=== PATIENT | female | born 1995 | race Caucasian/White ===

== ENCOUNTER 2021-02-24 07:33 | Inpatient (IN) ==
[2021-02-24] MEDS ORDERED: OXYTOCIN 30 UNITS/500 ML BAG IV PRN ×2 (07:48→07:50)
--- NOTE | 2021-02-24 08:03 | History & Physical Report ---
Date of Service February 24, 2021 Assessment & Plan (1) 40 weeks gestation of : (2) Encounter for induction of labor: (3) Gestational diabetes: Plan: Plan to admit. Pitocin for induction, arom as indicated . epidural on demand. fetus categroy one. anticipate . Admission and Anticipated Discharge Date Admission Date: February 24, 2021 History of Present Illness Chief Complaint: induction Primary Care Provider: Damian Lawrence Patient is a 25yowf with iup at 40 4/7 weeks who presents to labor and delivery for postdates induction. She notes +fm. no lof/vb. complicated by gdm diagnosed at 16 weeks, diet controlled. gbs neg. on 01/27 at 28 weeks ac was 45% and efw 38%. labs--B+/ab-/ri/rprnr/hepb-/hiv-/gc/ct-/ low risk invitae/cf/sma neg/ failed 16 week gtt Allergies Allergy/AdvReac Type Severity Reaction Status Date / Time No Known Allergies Allergy Verified 02/24/21 08:03 Home Medications Medication Instructions Recorded Confirmed Type lactase 3,000 unit tablet (Lactaid) 3,000 unit PO AC PRN 10/31/18 02/24/21 History prenat.vits,hanna,nlw-[id number] 1 tab PO DAILY 07/16/20 02/24/21 History acetone (urine) test (Ketone Urine #50 ea 10/24/20 02/23/21 Rx Test) blood sugar diagnostic (OneTouch #150 ea 10/24/20 02/23/21 Rx Verio test strips) blood-glucose meter (OneTouch #1 ea 10/24/20 02/23/21 Rx Verio Flex meter) lancets 33 gauge (OneTouch Delica #150 ea 10/24/20 02/23/21 Rx Plus Lancet) Patient History Medical History Anxiety Diarrhea Enlarged thyroid gland Lower abdominal pain Panic disorder Surgical History History of cholecystectomy History of open reduction and internal fixation (ORIF) procedure right foot fx--no hardware History of wisdom tooth extraction Family History Grandfather (Maternal) Family history of diabetes mellitus Diabetes Aunt Family hx of colon cancer Other No family history of adverse response to anesthesia Social History Smoking Status: Never smoker Second Hand Exposure: No; Hx Alcohol Use: Yes Alcohol type: beer, wine and hard liquor Hx Substance Use: No Preferred Language: French Communication Ability: Effective Academic Affairs Vice President Required: No Beliefs That Will Affect Care: None marital status: marital status details: Kyle (23) [phone] Current Living Situation: Spouse Current Living Situation Comment: lives with spouse and her parents, dogs, cats, mom changes litter current occupational status: employed current occupation: RN @ [employer] Other Information That Helps Us Care for You: No Feels Safe at Home: Yes Safety Concerns: Feels Safe At This Time Assistive Devices: Glasses OB History 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 Review of Systems All systems reviewed & are unremarkable except as noted in HPI & below Physical Exam Physical Exam: cx--4/75/-2/soft/mid toco--rare efm--140s with mod variability, accels to 160s, no decels Constitutional: WD/WN, vitals as above Gastrointestinal (Abdomen): soft, gravid, nt Psychiatric: A+Ox3, euthymic affect Results & Data ([facility]) Vital Signs (Past 12 Hours) Vital Signs Temp Pulse Resp BP 02/24/21 07:39 112 H 139/94 02/24/21 07:38 37.2 C 20 Code Status & VTE Plan VTE Prophylaxis Plan VTE Prophylaxis will be ordered: No Coding Level of Care Code None Diagnoses 40 weeks gestation of Z3A.40 Encounter for induction of labor Z34.90 Gestational diabetes O24.419
[2021-02-24 08:32] LABS: Hematocrit (blood only) 33.5 % (37-47); Hemoglobin 10.8 g/dL (12.0-16.0); Mean Corpuscular Hemoglobin 28.4 pg (25-34); Mean Corpuscular Hgb Conc 32.2 g/dL (32-36); Mean Corpuscular Volume 88.2 fL (80-100); Mean Platelet Volume 12.4 fL (7.4-10.4); Platelet Count 144 K/uL (130-400); RDW Standard Deviation 44.7 fL (36.4-46.3)
[2021-02-24] MEDS: LACTATED RINGER'S 1,000 ML IV PRN ×3 (09:02→19:37)
[2021-02-24] MEDS ORDERED: Nursing to Pharmacy Communication SCH (10:45)
--- NOTE | 2021-02-24 11:14 | Labor Progress Brief Note ---
Date of Service February 24, 2021 Subjective notes some cramping Assessment & Plan (1) 40 weeks gestation of : (2) Encounter for induction of labor: Plan: arom. fetus category one. epidural on demand. anticipate . Admission and Anticipated Discharge Date Admission Date: February 24, 2021 Physical Exam Physical Exam: cx--/-2 arom--copious clear toco--q2-3min, pit at 8 efm--140s with mod variability, accels to 160s no decels Results & Data ([facility]) Vital Signs (Past 12 Hours) Vital Signs Temp Pulse Resp BP 02/24/21 10:58 37.2 C 85 20 122/74 02/24/21 10:10 79 116/71 02/24/21 09:06 84 123/73 02/24/21 08:01 100 H 125/81 02/24/21 07:39 112 H 139/94 02/24/21 07:38 37.2 C 20 Coding Level of Care Code None Diagnoses 40 weeks gestation of Z3A.40 Encounter for induction of labor Z34.90
[2021-02-24] MEDS ORDERED: fentaNYL citrate 100 MCG/2 ML VIAL ONE (11:40)
[2021-02-24] MEDS ORDERED: ePHEDrine sulfate 50 MG/ML AMP ONE (11:40)
[2021-02-24] MEDS ORDERED: BUPIVACAINE 0.25% 30 ML VIAL ONE (11:40)
[2021-02-24] MEDS ORDERED: SODIUM CHLORIDE 0.9% INJ 10 ML VIAL ONE (11:40)
[2021-02-24] MEDS ORDERED: fentaNYL 2MCG/ML ROPIVACAINE 1.25MG/ML 100 ML BAG EPI ONE (11:41)
[2021-02-24] MEDS ORDERED: diphenhydrAMINE 50 MG/ML VIAL IV PRN (11:43)
[2021-02-24] MEDS ORDERED: ONDANSETRON INJ 2 MG/ML 2 ML VIAL IV PRN (11:43)
[2021-02-24] MEDS ORDERED: NALBUPHINE HCL INJ 10 MG/ML AMP IV PRN (11:43)
[2021-02-24] MEDS ORDERED: NALOXONE HCL 1 MG in SODIUM CHLORIDE 0.9% 1000ML 1,000 ML IV PRN (11:43)
[2021-02-24] MEDS ORDERED: NALOXONE HCL 0.4 MG/1 ML VIAL/CARP IV PRN (11:43)
[2021-02-24] MEDS ORDERED: fentaNYL 2MCG/ML ROPIVACAINE 1.25MG/ML 100 ML BAG EPI PRN (11:43)
[2021-02-24] MEDS ORDERED: ePHEDrine sulfate 50 MG/ML AMP IV PRN (11:43)
--- NOTE | 2021-02-24 11:50 | Anesthesiology Consultation ---
Date of Service February 24, 2021 Assessment & Plan Chart Review Chart Review: Patient NOT seen in Pre Admission Testing and Acceptable Risk for Labor Epidural Consults Requested none ASA ASA2 Proposed Anesthesia Anesthesia Type: Labor Epidural and CSE Risk / Benefits Reviewed With: PT / POA / Parent / Guardian, Accepts Plan and Informed Consent Obtained History Height/Weight Height: 5 ft 3 in Weight: 96.162 kg Allergies Allergy/AdvReac Type Severity Reaction Status Date / Time No Known Allergies Allergy Verified 02/24/21 08:03 Medications Home Medications Medication Instructions Recorded Confirmed Last Taken lactase 3,000 unit tablet (Lactaid) 3,000 unit PO AC PRN 10/31/18 02/24/21 02/23/21 07:00 prenat.vits,hanna,[id number]-[id number] 1 tab PO DAILY 07/16/20 02/24/21 02/24/21 06:15 acetone (urine) test (Ketone Urine #50 ea 10/24/20 02/23/21 Unknown Test) blood sugar diagnostic (OneTouch #150 ea 10/24/20 02/23/21 Unknown Verio test strips) blood-glucose meter (OneTouch #1 ea 10/24/20 02/23/21 Unknown Verio Flex meter) lancets 33 gauge (OneTouch Delica #150 ea 10/24/20 02/23/21 Unknown Plus Lancet) Active Medications Generic Name Dose Route Start Last Admin Trade Name Freq PRN Reason Stop Dose Admin Oxytocin 30 units in 500 mls @ 8 mls/hr 02/24/21 07:50 02/24/21 10:58 Pitocin IV 02/26/21 07:49 0.48 units/hr .Q24H PRN 8 mls/hr Labor Induction/Augmentation Titration Protocol 0.48 UNITS/HR Lactated Ringer's 1,000 mls @ 125 mls/hr 02/24/21 07:48 02/24/21 11:36 Lr IV 02/26/21 07:47 999 mls/hr .Q8H PRN Infusion L&D Protocol Protocol NPO Date Last Intake of Fluids: 02/24/21 Time Last Intake of Fluids: 11:00 Date Last Intake of Solids: 02/24/21 Time Last Intake of Solids: 06:00 Past Medical History Medical History Anxiety Diarrhea Enlarged thyroid gland Lower abdominal pain Panic disorder Exercise / Class Metabolic Activity II 4-5 Yardwork/Stairs/Walk up hill Past Family History Family History Grandfather (Maternal) Family history of diabetes mellitus Diabetes Aunt Family hx of colon cancer Other No family history of adverse response to anesthesia Past Surgical History Surgical History History of cholecystectomy History of open reduction and internal fixation (ORIF) procedure right foot fx--no hardware History of wisdom tooth extraction Past Anesthesia History No Hx of Anesthesia Complications and No Family Hx of Anesthesia Complications History of PONV No Hx of PONV and No Hx of Motion Sickness Social History Smoking Status: Never smoker Hx Alcohol Use: Yes Alcohol type: beer, wine and hard liquor alcohol intake frequency: a few times a month Hx Substance Use: No substance use type: does not use Review of Systems no chest pain or sob Physical Exam Vital Signs Last Vital Signs Temp 37.2 C 02/24/21 10:58 Pulse 76 02/24/21 11:43 Resp 20 02/24/21 10:58 BP 122/74 02/24/21 10:58 Pulse Ox 98 02/24/21 11:43 ENMT Mouth: no TMJ abnormality Thyromental Distance: > or= 3.5 Finger Breadths Mallampati Class: II Neck normal visual inspection Respiratory normal respiratory effort Auscultation: lungs clear to auscultation bilaterally Cardiovascular Rate/Rhythm: regular rate and regular rhythm Musculoskeletal Spine: normal cervical ROM Neurologic moves all extremities Psychiatric Orientation: alert and oriented x 3 Testing Laboratory Results 02/24/21 08:23 02/24/21 02/24/21 02/24/21 11:33 09:31 08:19 POC Glucose 74 80 91
--- NOTE | 2021-02-24 15:55 | Labor Progress Brief Note ---
Date of Service February 24, 2021 Subjective comfortable after epidural Assessment & Plan (1) 40 weeks gestation of : (2) Encounter for induction of labor: Plan: continue current management. fetus category one. anticipate . Admission and Anticipated Discharge Date Admission Date: February 24, 2021 Physical Exam Physical Exam: cx--8/100/-1 toco--q2-3min, pit at 10 efm--140s with mod variability, accels to 160s no decels Constitutional: WD/WN, vitals as above Psychiatric: A+Ox3, euthymic affect Results & Data ([facility]) Vital Signs (Past 12 Hours) Vital Signs Temp Pulse Resp BP Pulse Ox 02/24/21 15:48 64 99 02/24/21 15:45 62 100/50 L 02/24/21 15:43 65 98 02/24/21 15:38 71 99 02/24/21 15:33 66 99 02/24/21 15:30 20 02/24/21 15:29 71 116/79 02/24/21 15:28 71 99 02/24/21 15:23 67 99 02/24/21 15:18 68 99 02/24/21 15:13 79 119/76 99 02/24/21 15:08 79 99 02/24/21 15:03 77 99 02/24/21 15:00 37.4 C 20 02/24/21 14:59 75 121/77 02/24/21 14:58 73 99 02/24/21 14:53 78 99 02/24/21 14:48 77 99 02/24/21 14:44 71 124/74 02/24/21 14:43 76 100 02/24/21 14:38 73 99 02/24/21 14:33 73 100 02/24/21 14:30 18 02/24/21 14:29 80 112/66 02/24/21 14:28 78 100 02/24/21 14:23 76 100 02/24/21 14:18 67 99 02/24/21 14:13 65 106/58 L 99 02/24/21 14:08 76 99 02/24/21 14:03 69 100 02/24/21 14:00 20 02/24/21 13:59 64 94/53 L 02/24/21 13:58 61 99 02/24/21 13:53 66 97 08/31/21 13:48 62 98 02/24/21 13:45 60 97/56 L 02/24/21 13:43 61 98 02/24/21 13:38 78 99 02/24/21 13:33 70 98 02/24/21 13:30 20 02/24/21 13:28 66 92/53 L 99 02/24/21 13:23 67 98 02/24/21 13:18 65 97 02/24/21 13:13 64 92/50 L 99 02/24/21 13:08 63 98 02/24/21 13:05 37.1 C 18 02/24/21 13:03 79 99 02/24/21 12:58 73 110/71 98 02/24/21 12:53 74 98 02/24/21 12:48 71 99 02/24/21 12:45 70 114/69 02/24/21 12:43 74 99 02/24/21 12:38 71 98 02/24/21 12:33 83 99 02/24/21 12:28 82 129/70 99 02/24/21 12:24 88 115/93 02/24/21 12:23 76 99 02/24/21 12:18 82 99 02/24/21 12:17 81 118/74 02/24/21 12:15 80 20 116/73 02/24/21 12:13 83 116/70 99 02/24/21 12:11 81 126/79 02/24/21 12:09 89 119/73 02/24/21 12:08 83 100 02/24/21 12:07 96 H 123/73 02/24/21 12:05 85 119/69 02/24/21 12:03 89 125/75 100 02/24/21 12:02 20 02/24/21 12:01 77 124/67 02/24/21 11:58 78 100 02/24/21 11:53 91 H 100 02/24/21 11:48 76 99 02/24/21 11:43 76 98 02/24/21 10:58 37.2 C 85 20 122/74 02/24/21 10:10 79 116/71 02/24/21 09:06 84 123/73 02/24/21 08:01 100 H 125/81 02/24/21 07:39 112 H 139/94 02/24/21 07:38 37.2 C 20 Coding Level of Care Code None Diagnoses 40 weeks gestation of Z3A.40 Encounter for induction of labor Z34.90
--- NOTE | 2021-02-24 20:58 | Labor Progress Brief Note ---
Date of Service February 24, 2021 Subjective feeling pressure Assessment & Plan (1) Encounter for induction of labor: (2) Gestational diabetes: Plan: begin second stage. fetus category one. Admission and Anticipated Discharge Date Admission Date: February 24, 2021 Physical Exam Physical Exam: cx--c/c/0 toco--q2-3, pit at 10 efm--130s with mod variability, small accels, occasional variable Results & Data ([facility]) Vital Signs (Past 12 Hours) Vital Signs Temp Pulse Resp BP Pulse Ox 02/24/21 20:55 119 H 91 02/24/21 20:53 80 100 02/24/21 20:50 69 106/60 02/24/21 20:48 72 99 02/24/21 20:43 70 100 02/24/21 20:38 72 99 02/24/21 20:35 63 100/58 L 02/24/21 20:33 69 99 02/24/21 20:28 65 100 02/24/21 20:23 75 100 02/24/21 20:18 72 99 02/24/21 20:14 75 127/82 02/24/21 20:13 67 100 02/24/21 20:08 86 99 02/24/21 20:03 71 99 02/24/21 20:00 37.3 C 80 18 128/84 100 02/24/21 19:59 69 128/84 02/24/21 19:58 75 100 02/24/21 19:53 80 100 02/24/21 19:48 78 99 02/24/21 19:44 78 126/81 02/24/21 19:43 82 99 02/24/21 19:38 73 99 02/24/21 19:33 68 99 02/24/21 19:30 20 02/24/21 19:28 71 129/82 100 02/24/21 19:23 67 99 02/24/21 19:18 71 98 02/24/21 19:15 68 130/74 02/24/21 19:13 73 99 02/24/21 19:08 64 99 02/24/21 19:03 77 100 02/24/21 19:00 37.3 C 20 02/24/21 18:58 78 131/87 100 02/24/21 18:53 74 100 02/24/21 18:48 66 98 02/24/21 18:44 68 123/73 02/24/21 18:43 70 99 02/24/21 18:38 65 99 02/24/21 18:33 93 H 100 02/24/21 18:28 69 120/89 98 02/24/21 18:23 73 98 02/24/21 18:18 73 98 02/24/21 18:14 67 122/67 02/24/21 18:13 66 98 02/24/21 18:08 65 98 02/24/21 18:03 68 98 02/24/21 18:00 20 02/24/21 17:59 71 119/66 02/24/21 17:58 68 99 02/24/21 17:53 68 98 02/24/21 17:48 72 98 02/24/21 17:45 66 120/62 02/24/21 17:43 77 97 02/24/21 17:38 85 97 02/24/21 17:33 91 H 99 02/24/21 17:30 20 02/24/21 17:29 75 136/58 L 02/24/21 17:28 64 99 02/24/21 17:23 75 99 02/24/21 17:18 77 99 02/24/21 17:15 71 99/49 L 02/24/21 17:13 77 99 02/24/21 17:08 63 97 02/24/21 17:03 63 99 02/24/21 17:00 37.2 C 20 02/24/21 16:59 60 98/55 L 02/24/21 16:58 59 L 97 02/24/21 16:53 59 L 98 02/24/21 16:48 58 L 97 02/24/21 16:44 63 92/54 L 02/24/21 16:43 65 98 02/24/21 16:38 75 99 02/24/21 16:33 66 99 02/24/21 16:30 20 02/24/21 16:29 61 110/57 L 02/24/21 16:28 62 99 02/24/21 16:23 62 99 02/24/21 16:18 62 99 02/24/21 16:14 65 100/57 L 02/24/21 16:13 67 99 02/24/21 16:08 72 99 02/24/21 16:03 73 100 08/31/21 16:00 20 02/24/21 15:58 63 100/53 L 99 02/24/21 15:53 67 100 02/24/21 15:48 64 99 02/24/21 15:45 62 100/50 L 02/24/21 15:43 65 98 02/24/21 15:38 71 99 02/24/21 15:33 66 99 02/24/21 15:30 20 02/24/21 15:29 71 116/79 02/24/21 15:28 71 99 02/24/21 15:23 67 99 02/24/21 15:18 68 99 02/24/21 15:13 79 119/76 99 02/24/21 15:08 79 99 02/24/21 15:03 77 99 02/24/21 15:00 37.4 C 20 02/24/21 14:59 75 121/77 02/24/21 14:58 73 99 02/24/21 14:53 78 99 02/24/21 14:48 77 99 02/24/21 14:44 71 124/74 02/24/21 14:43 76 100 02/24/21 14:38 73 99 02/24/21 14:33 73 100 02/24/21 14:30 18 02/24/21 14:29 80 112/66 02/24/21 14:28 78 100 02/24/21 14:23 76 100 02/24/21 14:18 67 99 02/24/21 14:13 65 106/58 L 99 02/24/21 14:08 76 99 02/24/21 14:03 69 100 02/24/21 14:00 20 02/24/21 13:59 64 94/53 L 02/24/21 13:58 61 99 02/24/21 13:53 66 97 02/24/21 13:48 62 98 02/24/21 13:45 60 97/56 L 02/24/21 13:43 61 98 02/24/21 13:38 78 99 02/24/21 13:33 70 98 02/24/21 13:30 20 02/24/21 13:28 66 92/53 L 99 02/24/21 13:23 67 98 02/24/21 13:18 65 97 02/24/21 13:13 64 92/50 L 99 02/24/21 13:08 63 98 02/24/21 13:05 37.1 C 18 02/24/21 13:03 79 99 02/24/21 12:58 73 110/71 98 02/24/21 12:53 74 98 02/24/21 12:48 71 99 02/24/21 12:45 70 114/69 02/24/21 12:43 74 99 02/24/21 12:38 71 98 02/24/21 12:33 83 99 02/24/21 12:28 82 129/70 99 02/24/21 12:24 88 115/93 02/24/21 12:23 76 99 02/24/21 12:18 82 99 02/24/21 12:17 81 118/74 02/24/21 12:15 80 20 116/73 02/24/21 12:13 83 116/70 99 02/24/21 12:11 81 126/79 02/24/21 12:09 89 119/73 02/24/21 12:08 83 100 02/24/21 12:07 96 H 123/73 02/24/21 12:05 85 119/69 02/24/21 12:03 89 125/75 100 02/24/21 12:02 20 02/24/21 12:01 77 124/67 02/24/21 11:58 78 100 02/24/21 11:53 91 H 100 02/24/21 11:48 76 99 02/24/21 11:43 76 98 02/24/21 10:58 37.2 C 85 20 122/74 02/24/21 10:10 79 116/71 02/24/21 09:06 84 123/73 Coding Level of Care Code None Diagnoses Encounter for induction of labor Z34.90 Gestational diabetes O24.419
[2021-02-24] MEDS ORDERED: ACETAMINOPHEN 325 MG TAB PO PRN (23:13)
[2021-02-24] MEDS ORDERED: oxyCODONE/ACETAMINOPHEN 5mg/325mg TAB PO PRN (23:13)
--- NOTE | 2021-02-24 23:20 | Delivery Summary ---
Vaginal Delivery Summary Date of Service February 24, 2021 Pre-operative Diagnosis: at 40 4/7 GDM encounter for induction Post-operative Diagnosis: same Procedure: pitocin induction arom epidural manual extraction of the placenta second degree laceration repair EBL: 450cc Anesthesia: epidural Procedure: The patient presented to labor and delivery for postdates induction. Her cervix was favorable. Started with pitocin induction and then arom for clear fluid. she got an epidural and then progressed to c/c/+1. She labored down and then pushed for a little less than one hour to deliver a viable male infant in maude position. The shoulder was delivered by placing the patient flat and Gonzalez maneuver but there was no true shoulder dystocia. the rest of the was then delivered without difficulty. The baby was vigorous. The nose and mouth were bulb suctioned and the infant was placed in the maternal abdomen for drying and attention. Cord was clamped and cut at about one minute of life. Cord blood and segment obtained. Placenta by manual extraction after the cord was avulsed. Several sweeps were made of the uterus to deliver the placenta and the uterine cavity felt clean at the last sweep. Cervix/sulci/rectum were intact. A second degree perineal laceration was repaired in the normal standard fashion. Hemostasis obtained with dilute pitocin and fundal massage. Apgars were 8/9. Mother and baby doing well at the end of the delivery. Patient will receive a dose of Ancef secondary to manual extraction. Vaginal Delivery Summary and 2nd Degree LAC [facility] Vaginal Delivery Charge Delivery Type Details: and 2nd Degree LAC
[2021-02-24] MEDS ORDERED: ceFAZolin 1000MG 1,000 MG/7.5 ML SYR IV ONE (23:30)
--- NOTE | 2021-02-24 23:34 | Anesthesia Procedure Note ---
Date of Service February 24, 2021 Anesthesia Post Epidural Note Vital Signs Vital Signs: Temp Pulse Resp BP Pulse Ox 37.2 C 110 H 16 106/60 97 02/24/21 21:09 02/24/21 23:28 02/24/21 21:09 02/24/21 23:20 02/24/21 23:28 Pain Intensity Bilateral Abdomen: Pain Intensity: 0 Notes Mental Status: alert / awake / arousable and participated in evaluation Nausea / Vomiting: adequately controlled Pain: adequately controlled Airway Patency, RR, SpO2: stable & adequate BP & HR: stable & adequate Hydration State: stable & adequate Neuraxial Anesthesia: was administered and sensory block is resolving Anesthetic Complications: no major complications apparent and Pt Satisfied with anesthetic care Epidural: Removed without complications and With tip intact
[2021-02-25] MEDS ORDERED: BENZOIN EXT PRN (01:05)
[2021-02-25] MEDS ORDERED: SUPERCREAM 0.870% 15 GM JAR EXT PRN (01:07)
[2021-02-25] MEDS ORDERED: BENZOCAINE 20% AER SPR 82.5 GM CAN EXT PRN (01:33)
[2021-02-25] MEDS: IBUPROFEN 600 MG TAB PO PRN ×5 (02:18→21:02)
--- NOTE | 2021-02-25 06:13 | Obstetrical Progress Note ---
Date of Service <Darlin Schulz MD - Last Filed: 02/25/21 07:05> February 25, 2021 Assessment & Plan <Darlin Schulz MD - Last Filed: 02/25/21 07:05> (1) Vaginal delivery: 25 yo , complicated by GDM, now PPD1 from [facility] at 40wk5d -Continue routine care. New mother, education to be provided. Anticipated d/c tomorrow. -Vitals reviewed- HDS, afebrile -Blood type, GBS, Rubella immune -Encourage ambulation -Pain control with Motrin, Tylenol PRN -Regular diet -Monitor lochia -Encourage -Hgb 10.8, asymptomatic -F/u in 6 weeks with OB <Diane Guajardo MD, FACOG - Last Filed: 02/25/21 07:09> (1) Vaginal delivery: Subjective <Darlin Schulz MD - Last Filed: 02/25/21 07:05> Ambulation: ambulating normally Voiding: no voiding problems Passing Gas:: Yes Diet Tolerance:: regular diet Lochia:: Small Feeding Type:: breast feeding Current Pain Level(1-10): 0 Pt and baby doing well, no acute events or complaints. Has not passed BM yet. Pain well controlled with Motrin. Review of Systems Denies fevers/chills. Denies dyspnea, cough. Denies chest pain. Denies breast pain or discharge. Denies dysuria. Denies headache. Physical Exam <Darlin Schulz MD - Last Filed: 02/25/21 07:05> General: Alert, oriented, no acute distress Cardiac: Regular rate and rhythm, normal S1, S2. No murmurs appreciated. Respiratory: Clear to auscultation b/l with good air flow entry, symmetric chest rise and fall. No wheezes or crackles. No increased work of breathing or accessory muscle use Abdomen: Soft, nontender, nondistended. Fundus firm and palpable at 2 cm below umbilicus. No guarding or rebound. Skin: No rashes or lesions Extremities: Warm, dry, well-perfused with capillary refill <2s b/l. No lower extremity edema, erythema or swelling. Negative Robin's sign b/l. Results & Data ([facility]) <Darlin Schulz MD - Last Filed: 02/25/21 07:05> Vital Signs (Past 12 Hours) Vital Signs Temp Pulse Pulse Resp BP BP Pulse Ox 02/25/21 01:40 37.0 C 129 H 16 134/83 96 02/25/21 01:06 109 H 109/59 L 02/25/21 00:36 99 H 112/72 02/25/21 00:05 52 L 129/70 02/24/21 23:50 123 H 128/78 02/24/21 23:36 114 H 128/58 L 02/24/21 23:33 110 H 97 02/24/21 23:28 110 H 97 02/24/21 23:23 105 H 97 02/24/21 23:20 127 H 106/60 02/24/21 23:18 117 H 97 02/24/21 23:13 116 H 97 02/24/21 23:08 119 H 97 02/24/21 23:05 150 H 114/56 L 02/24/21 23:03 144 H 100 02/24/21 22:58 113 H 98 02/24/21 22:53 112 H 97 02/24/21 22:50 114 H 128/56 L 02/24/21 22:48 137 H 97 02/24/21 22:43 127 H 99 02/24/21 22:40 88 91 02/24/21 22:38 144 H 99 02/24/21 22:37 103 H 138/70 02/24/21 22:34 109 H 90 02/24/21 22:33 93 H 98 02/24/21 22:28 79 100 02/24/21 22:23 129 H 100 02/24/21 22:22 105 H 143/83 H 02/24/21 22:18 76 100 02/24/21 22:13 77 99 02/24/21 22:08 76 99 02/24/21 22:06 75 107/59 L 02/24/21 22:03 80 98 02/24/21 21:58 80 99 02/24/21 21:53 85 99 02/24/21 21:51 99 H 134/55 L 02/24/21 21:48 114 H 100 02/24/21 21:43 119 H 93 02/24/21 21:38 151 H 100 02/24/21 21:35 62 139/79 02/24/21 21:33 74 100 02/24/21 21:28 70 99 02/24/21 21:23 83 99 02/24/21 21:21 86 138/72 02/24/21 21:18 107 H 93 02/24/21 21:13 114 H 99 02/24/21 21:09 37.2 C 16 02/24/21 21:08 66 100 02/24/21 21:07 65 129/83 02/24/21 21:03 86 100 02/24/21 20:58 80 100 02/24/21 20:55 119 H 91 02/24/21 20:53 80 100 02/24/21 20:50 69 106/60 02/24/21 20:48 72 99 02/24/21 20:43 70 100 02/24/21 20:38 72 99 02/24/21 20:35 63 100/58 L 02/24/21 20:33 69 99 02/24/21 20:28 65 100 02/24/21 20:23 75 100 02/24/21 20:18 72 99 02/24/21 20:14 75 127/82 02/24/21 20:13 67 100 02/24/21 20:08 86 99 02/24/21 20:03 71 99 02/24/21 20:00 37.3 C 80 18 128/84 100 02/24/21 19:59 69 128/84 02/24/21 19:58 75 100 02/24/21 19:53 80 100 02/24/21 19:48 78 99 02/24/21 19:44 78 126/81 02/24/21 19:43 82 99 02/24/21 19:38 73 99 02/24/21 19:33 68 99 02/24/21 19:30 20 02/24/21 19:28 71 129/82 100 02/24/21 19:23 67 99 02/24/21 19:18 71 98 02/24/21 19:15 68 130/74 02/24/21 19:13 73 99 02/24/21 19:08 64 99 02/24/21 19:03 77 100 02/24/21 19:00 37.3 C 20 02/24/21 18:58 78 131/87 100 02/24/21 18:53 74 100 02/24/21 18:48 66 98 02/24/21 18:44 68 123/73 02/24/21 18:43 70 99 02/24/21 18:38 65 99 02/24/21 18:33 93 H 100 02/24/21 18:28 69 120/89 98 02/24/21 18:23 73 98 02/24/21 18:18 73 98 02/24/21 18:14 67 122/67 02/24/21 18:13 66 98 <Diane Guajardo MD, FACOG - Last Filed: 02/25/21 07:09> Co-Signing Physician Notes Resident Physician Supervision Note: I interviewed and examined the patient. Discussed with Dr. Schulz and agree with findings and plan as documented in the note. Any exceptions or clarifications are listed here: Doing well. routine care. Documented By: Diane Guajardo MD, FACOG Resident Activity Tracking <Darlin Schulz MD - Last Filed: 02/25/21 07:05> Resident Involvement: Resident Care Provided Care Provided: OB Delivery
[2021-02-25] MEDS: DOCUSATE SODIUM 100 MG CAP PO SCH (21:02)
[2021-02-26] MEDS: IBUPROFEN 600 MG TAB PO PRN ×2 (02:10→07:57)
--- NOTE | 2021-02-26 06:20 | Hospitalist Progress Note ---
Date of Service February 24, 2021 Assessment & Plan (1) Vaginal delivery: Plan: 25 yo , complicated by GDM, now PPD1 from at 40wk5d -Continue routine care. New mother, education to be provided. Anticipated d/c tomorrow. -Vitals reviewed- HDS, afebrile -Blood type, GBS, Rubella immune -Encourage ambulation -Pain control with Motrin, Tylenol PRN -Regular diet -Monitor lochia -Encourage -Hgb 10.8, asymptomatic -F/u in 6 weeks with OB Admission and Anticipated Discharge Date Admission Date: February 24, 2021 Physical Exam Physical Exam: General: Alert, oriented, no acute distress Cardiac: Regular rate and rhythm, normal S1, S2. No murmurs appreciated. Respiratory: Clear to auscultation b/l with good air flow entry, symmetric chest rise and fall. No wheezes or crackles. No increased work of breathing or accessory muscle use Abdomen: Soft, nontender, nondistended. Fundus firm and palpable at 2 cm below umbilicus. No guarding or rebound. Skin: No rashes or lesions Extremities: Warm, dry, well-perfused with capillary refill <2s b/l. No lower extremity edema, erythema or swelling. Negative Robin's sign b/l. Results & Data Results & Data ([facility]) Vital Signs (Past 12 Hours) Vital Signs Temp Pulse Resp BP Pulse Ox 02/24/21 13:33 70 98 02/24/21 13:30 20 02/24/21 13:28 66 92/53 L 99 02/24/21 13:23 67 98 02/24/21 13:18 65 97 02/24/21 13:13 64 92/50 L 99 02/24/21 13:08 63 98 02/24/21 13:05 18 02/24/21 13:03 79 99 02/24/21 12:58 73 110/71 98 02/24/21 12:53 74 98 02/24/21 12:48 71 99 02/24/21 12:45 70 114/69 02/24/21 12:43 74 99 02/24/21 12:38 71 98 02/24/21 12:33 83 99 02/24/21 12:28 82 129/70 99 02/24/21 12:24 88 115/93 02/24/21 12:23 76 99 02/24/21 12:18 82 99 02/24/21 12:17 81 118/74 02/24/21 12:15 80 20 116/73 02/24/21 12:13 83 116/70 99 02/24/21 12:11 81 126/79 02/24/21 12:09 89 119/73 02/24/21 12:08 83 100 02/24/21 12:07 96 H 123/73 02/24/21 12:05 85 119/69 02/24/21 12:03 89 125/75 100 02/24/21 12:02 20 02/24/21 12:01 77 124/67 02/24/21 11:58 78 100 02/24/21 11:53 91 H 100 02/24/21 11:48 76 99 02/24/21 11:43 76 98 02/24/21 10:58 37.2 C 85 20 122/74 02/24/21 10:10 79 116/71 02/24/21 09:06 84 123/73 02/24/21 08:01 100 H 125/81 02/24/21 07:39 112 H 139/94 02/24/21 07:38 37.2 C 20
--- NOTE | 2021-02-26 06:22 | Obstetrical Progress Note ---
Date of Service <Darlin Schulz MD - Last Filed: 02/26/21 07:03> February 26, 2021 Assessment & Plan <Darlin Schulz MD - Last Filed: 02/26/21 07:03> (1) Vaginal delivery: 25 yo , complicated by GDM, now PPD2 from at 40wk5d -Continue routine care. New mother, education provided. Will d/c today. -Vitals reviewed- HDS, afebrile -Blood type B+, GBS -, Rubella immune -Encourage ambulation -Pain control with Motrin, Tylenol PRN -Regular diet -Monitor lochia -Encourage -Hgb 10.8, asymptomatic -F/u in 6 weeks with OB <Ami Maldonado MD, FACOG - Last Filed: 02/26/21 07:14> (1) Vaginal delivery: Day #:: 2 Subjective <Darlin Schulz MD - Last Filed: 02/26/21 07:03> Ambulation: ambulating normally Voiding: no voiding problems Passing Gas:: Yes Diet Tolerance:: regular diet Lochia:: Small Feeding Type:: breast feeding Current Pain Level(1-10): 0 Pt and baby doing well, no acute events or complaints. Has not passed BM yet. Minimal soreness, well controlled with Motrin. Wants to go home today. Review of Systems Denies fevers/chills. Denies dyspnea, cough. Denies chest pain. Denies breast pain or discharge. Denies dysuria. Denies headache. Physical Exam <Darlin Schulz MD - Last Filed: 02/26/21 07:03> General: Alert, oriented, no acute distress Cardiac: Regular rate and rhythm, normal S1, S2. No murmurs appreciated. Respiratory: Clear to auscultation b/l with good air flow entry, symmetric chest rise and fall. No wheezes or crackles. No increased work of breathing or accessory muscle use Abdomen: Soft, nontender, nondistended. Fundus firm and palpable at 2 cm below umbilicus. No guarding or rebound. Skin: No rashes or lesions Extremities: Warm, dry, well-perfused with capillary refill <2s b/l. No lower extremity edema, erythema or swelling. Negative Robin's sign b/l. Results & Data ([facility]) <Darlin Schulz MD - Last Filed: 02/26/21 07:03> Vital Signs (Past 12 Hours) Vital Signs Temp Pulse Resp BP Pulse Ox 02/25/21 23:30 36.9 C 85 18 122/81 02/25/21 19:22 36.4 C L 104 H 16 111/74 97 <Ami Maldonado MD, FACOG - Last Filed: 02/26/21 07:14> Co-Signing Physician Notes Resident Physician Supervision Note: I interviewed and examined the patient. Discussed with Dr. Schulz and agree with findings and plan as documented in the note. Any exceptions or clarifications are listed here: [None] Documented By: Ami Maldonado MD, FACOG Resident Activity Tracking <Darlin Schulz MD - Last Filed: 02/26/21 07:03> Resident Involvement: Resident Care Provided Care Provided: OB Delivery
[2021-02-26] MEDS: DOCUSATE SODIUM 100 MG CAP PO SCH (07:57)
[2021-02-26] MEDS ORDERED: PRENATAL VITAMIN 1 TAB PO SCH (08:00)
[2021-02-26] MEDS ORDERED: bisacodyL 5 MG TABEC PO SCH (20:00)
== END 2021-02-26 12:59 | disposition home or self-care (01) | DRG 807 ==
LOC: 4S1 07:33 → 4S2 02-25 01:15

== ENCOUNTER 2021-08-24 09:03 | Inpatient (IN) ==
[2021-08-24] MEDS ORDERED: ONDANSETRON INJ 2 MG/ML 2 ML VIAL IV STA (09:29)
[2021-08-24] MEDS ORDERED: SODIUM CHLORIDE 0.9% 1000ML 1,000 ML IV STA (09:29)
[2021-08-24] MEDS ORDERED: KETOROLAC TROMETHAMINE 15 MG/ML VIAL IV STA (09:29)
--- NOTE | 2021-08-24 09:29 | Emergency Department Note ---
Impression & Plan Obstruction of left ureteropelvic junction (UPJ) due to stone, Pyelonephritis of left kidney, Sepsis ED Provider Note CHIEF COMPLAINT: Left flank pain HISTORY OF PRESENTING ILLNESS: This is a 25-year-old female who presents to the emergency department by private vehicle with complaint of left flank pain radiating to the left lower abdomen that has been ongoing for the past 2 days. She notes the pain is constant, describes as an ache and currently rates the pain 7/10. She took Tylenol earlier this morning with some improvement. She does note some associated nausea but has not had any vomiting. She took Zofran this morning with some improvement. She has not had any fevers, chills, or malaise. She does note some mild burning with urination, and increased urination. She has not noticed any blood. She denies any abnormal vaginal bleeding or discharge. She denies any chest pain, chest tightness, shortness of breath, palpitations, dizziness or syncope. She does note that she is 6 months from a vaginal delivery and has resumed her menstrual cycle, her last menstrual period was last week. She is not breast-feeding currently. She denies any history of kidney stones. She does have a history of a previous cholecystectomy, no other abdominal surgeries. REVIEW OF SYSTEMS: A complete 10 point review of systems was reviewed with the patient with pertinent positives and negatives as per history of present illness. All else were negative. PAST MEDICAL HISTORY: Anxiety/panic disorder, history of cholecystectomy and right foot surgery SOCIAL HISTORY: Lives at home with family, she denies tobacco use ALLERGIES: No known allergies PHYSICAL EXAM: CONSTITUTIONAL: Pleasant and cooperative. Nontoxic-appearing and in no acute distress. Appears dehydrated, but otherwise well appearing and well nourished. HEENT: Normocephalic, atraumatic. Pharynx normal. Dry mucous membranes. NECK: Supple, full active range of motion without discomfort. RESPIRATORY: Clear to auscultation bilaterally with no wheezing, crackles, rhonchi or stridor. Equal expansion bilaterally. CARDIOVASCULAR: Regular rate and rhythm with no murmurs, rubs or gallops. Normal peripheral perfusion. No edema. GASTROINTESTINAL: Tender to palpation of the left mid and lower abdomen, no triny ound tenderness or guarding. Left CVA tenderness to percussion, no right CVA tenderness. No palpable masses or HSM. Bowel sounds present in all quadrants. MUSCULOSKELETAL: Full range of motion of all joints without discomfort. INTEGUMENTARY: No rash or other significant dermatologic conditions noted. NEUROLOGIC: Alert and oriented X 4 with normal affect. Normal strength and sensation in all 4 extremities. Normal speech. Normal gait observed. ED COURSE AND MEDICAL DECISION MAKING: CC: Patient presenting with complaint of left flank pain DIFFERENTIAL DIAGNOSIS: Includes, but not limited to UTI, pyelonephritis, ureteral stone, infected stone, pancreatitis, diverticulitis, gastroenteritis, infectious colitis, ovarian cyst, ovarian torsion, ectopic , tubo- ovarian abscess, bacteremia/sepsis, among others. INTERPRETATION OF LABS: Leukocytosis with left shift, no anemia, normal platelets, no significant electrolyte abnormalities, normal renal function, normal liver enzymes and lipase. Lactate within normal limits. UA appears consistent with UTI with 3+ leukocyte esterase, large WBCs and 1+ bacteria. Urine negative. EKG: Shows sinus tachycardia with a rate of 159 bpm, no ST elevation or depression, T wave inversion in anterolateral leads, no ectopy by my interpretation. MEDICATION RECONCILIATION: I attest that I have personally reviewed the patient's current medication list. INITIAL VITAL SIGNS REVIEW: I reviewed the patient's initial vital signs and interpret them as follows: T: Afebrile; BP: Normotensive; HR: Tachycardic; RR: Within normal limits; Pulse Ox: Within normal limits on room air. MDM SUMMARY: Patient was evaluated at bedside, history and physical exam performed. Patient is alert and oriented, in no acute distress, resting calmly in stretcher. She is afebrile and nontoxic-appearing, but does appear to be dehydrated cli nically. She is tender to palpation of the left flank and left mid to lower abdomen with left-sided CVA tenderness. No acute abdomen. Cardiac monitoring: An order was placed for continuous cardiac monitoring. The monitor shows a rate of 112 bpm with sinus tachycardia rhythm. Orders were placed for labs, UA and urine , IV fluids for hydration, IV Toradol for pain, IV Zofran for nausea, CT abdomen/pelvis with IV contrast to evaluate for left flank pain. Patient discussed with Dr. Paul, who agrees with my assessment, plan, and disposition. Labs and imaging reviewed, labs are notable for leukocytosis with left shift, and UA appears consistent with a UTI. She is not . Normal renal function. Patient does note that her pain was significantly improved after the Toradol and she now rates the pain 07/06. CT imaging reviewed and is notable for a 6 mm left UPJ calculus with mild left hydronephrosis and delayed nephrogram. I spoke on the phone with Dr. Choi, urology, and I discussed the patient's obstructing ureteral stone and concern for concomitant infection. He felt that the patient could most likely be discharged home on antibiotics and they will plan to get her in later this week for follow-up and intervention. He requested a KUB and a COVID test and recommended p.o. Cipro. He was in agreement with IV Rocephin prior to discharge. Nursing staff notified me that the patient started to feel anxious and shaky, and was noted to become tachycardic in the 150s shortly after starting the IV Rocephin. Nursing staff notes that they did check a temp and she was afebrile. I evaluated the patient, she appears anxious and states that she feels tingly in her fingers. She denies shortness of breath, swelling of the tongue, lips, or throat, nausea or vomiting, itching or rash. She was given a dose of Benadryl IV 50 mg and will continue to monitor closely. EKG was performed which showed sinus tachycardia by my interpretation. I did not suspect allergic reaction based on this evaluation and recommended continuing the ceftriaxone. On reassessment the patient is now complaining of nausea and vomiting is still feeling shaky and tachycardic. The ceftriaxone was stopped at this point, the patient received about two thirds of the dose. I reassessed the patient again and she states she is still feeling somewhat shaky although her symptoms are little bit better after the IV Benadryl. She does say that she is now feeling chills. I rechecked her temperature and she was noted to have a fever at 39.2 and remains tachycardic in the 130s-140s. 1 g IV Tylenol was ordered. Based on her work-up today and development of fever with rigors, I am concerned for developing sepsis. The patient did have 1 episode of hypotension of 97/59, however this appeared to be transient and she has not been persistently hypotensive. Tachycardia is improving after antipyretics and IV fluids. The patient has received a total of 2 L of IV fluids, which adequately meets her 30 mL/kg fluid bolus for sepsis. She has already received some IV and oral antibiotics. Orders were placed for blood cultures x2 as well as a lactic acid. I did speak again on the phone with Dr. Choi' team and notified them of the patient's fever, he plans to come in and take the patient to the OR for stenting today. Additional orders placed by their team for IV gentamicin. The patient is being kept n.p.o. She last ate solid food at 7 PM yesterday and has only had sips of fluid today. The patient will be admitted to the [facility] team, they are aware of urology's plan. The patient and her were kept updated on all results and plan for admission as well as the plan for OR and stenting with the urology team. All questions were answered to the best of my ability and the patient was comfortable with the plan. The patient was stable and overall improving at the time of admission and transfer to the OR. CRITICAL CARE NOTE: I have personally spent greater than 37 minutes of critical care time in the direct management of this patient. This includes bedside care, interpretation of diagnostic studies, and testing, discussion with consultants, patient, and family members, and other required patient management activities. This 37 minutes is in excess of all separately billable procedures. The chart was completed utilizing [employer] Speech voice recognition software. Grammatical errors, random word insertions, pronoun errors, and incomplete sentences are an occasional consequence of this system due to software limitations, ambient noise, and hardware issues. Any formal questions or concerns about the content, text, or information contained within the body of this dictation should be directly addressed to the nurse practitioner for clarification. Past Med/Surg History Medical History Anxiety Diarrhea Enlarged thyroid gland Lower abdominal pain Panic disorder Surgical History History of cholecystectomy History of open reduction and internal fixation (ORIF) procedure right foot fx--no hardware History of wisdom tooth extraction Family History Grandfather (Maternal) Family history of diabetes mellitus Diabetes Aunt Family hx of colon cancer Other No family history of adverse response to anesthesia Social History Smoking Status: Never smoker Second Hand Exposure: No; Hx Alcohol Use: Yes Alcohol type: beer, wine and hard liquor Hx Substance Use: No Preferred Language: American Communication Ability: Effective Abrasive Grader Required: No Beliefs That Will Affect Care: None marital status: marital status details: Kyle (23) [phone] Current Living Situation: Spouse Current Living Situation Comment: lives with spouse and her parents, dogs, cats, mom changes litter current occupational status: employed current occupation: RN @ [employer] Feels Safe at Home: Yes Assistive Devices: None Allergies Allergies Allergy/AdvReac Type Severity Reaction Status Date / Time ceftriaxone [From Rocephin] AdvReac tachycardia, Verified 08/24/21 15:36 flushing, hyperemia Home Meds Home Medications Medication Instructions Recorded Confirmed lactase 3,000 unit tablet (Lactaid) 3,000 unit PO AC PRN 10/31/18 08/24/21 cetirizine 10 mg capsule (Zyrtec) 10 mg PO DAILY 02/24/21 08/24/21 cholecalciferol (vitamin D3) 25 25 mcg PO DAILY 08/24/21 08/24/21 mcg (1,000 unit) tablet (Vitamin D3) docusate sodium 100 mg capsule 100 mg PO DAILY 08/24/21 08/24/21 (Colace) Results & Data (ED) Vital Signs Vital Signs - 24 hr 08/24/21 09:06 08/24/21 10:04 08/24/21 10:30 Temperature 36.2 C L Temperature Source Temporal Artery Scan Pulse Rate 120 H 115 H 114 H Pulse Rate [Apical] Pulse Rate from SpO2 Sensor 117 H 116 H Pulse Rhythm Regular Pulse Rhythm [Apical] Pulse Strength Normal Pulse Strength [Apical] Respiratory Rate 18 28 H 17 Respiratory Effort / Characteristics Non-Labored Spontaneous Respiratory Depth Normal Respiratory Pattern Regular Blood Pressure 131/69 Blood Pressure [Left Arm] Blood Pressure [Right Arm] Blood Pressure Mean 89 Blood Pressure Mean [Left Arm] Blood Pressure Mean [Right Arm] Blood Pressure Position Sitting Blood Pressure Position [Left Arm] Blood Pressure Position [Right Arm] Pulse Oximetry 100 100 100 Oxygen Delivery Method Room Air Oxygen Flow Rate Sepsis Recent Fever Within 48 Hours No Sepsis New/Unexplained Change in Mental Status No Sepsis Action Taken by Nursing No Action Required 08/24/21 11:15 08/24/21 11:28 08/24/21 11:30 Temperature Temperature Source Pulse Rate 113 H 103 H Pulse Rate [Apical] Pulse Rate from SpO2 Sensor 104 H Pulse Rhythm Pulse Rhythm [Apical] Pulse Strength Pulse Strength [Apical] Respiratory Rate 22 19 Respiratory Effort / Characteristics Respiratory Depth Respiratory Pattern Blood Pressure 109/73 Blood Pressure [Left Arm] Blood Pressure [Right Arm] Blood Pressure Mean 85 Blood Pressure Mean [Left Arm] Blood Pressure Mean [Right Arm] Blood Pressure Position Blood Pressure Position [Left Arm] Blood Pressure Position [Right Arm] Pulse Oximetry 98 99 Oxygen Delivery Method Oxygen Flow Rate Sepsis Recent Fever Within 48 Hours Sepsis New/Unexplained Change in Mental Status Sepsis Action Taken by Nursing 08/24/21 12:00 08/24/21 12:30 08/24/21 12:35 Temperature Temperature Source Pulse Rate 113 H 178 H Pulse Rate [Apical] 158 H Pulse Rate from SpO2 Sensor 116 H 178 H Pulse Rhythm Pulse Rhythm [Apical] Regular Pulse Strength Pulse Strength [Apical] Normal Respiratory Rate 16 18 20 Respiratory Effort / Characteristics Non-Labored Spontaneous Respiratory Depth Normal Respiratory Pattern Regular Blood Pressure 122/85 141/84 H Blood Pressure [Left Arm] Blood Pressure [Right Arm] 141/84 H Blood Pressure Mean 97 103 Blood Pressure Mean [Left Arm] Blood Pressure Mean [Right Arm] 103 Blood Pressure Position Blood Pressure Position [Left Arm] Blood Pressure Position [Right Arm] Sitting Pulse Oximetry 99 95 99 Oxygen Delivery Method Room Air Oxygen Flow Rate Sepsis Recent Fever Within 48 Hours Sepsis New/Unexplained Change in Mental Status Sepsis Action Taken by Nursing 08/24/21 12:42 08/24/21 12:45 08/24/21 12:51 Temperature Temperature Source Pulse Rate 154 H 153 H Pulse Rate [Apical] 127 H Pulse Rate from SpO2 Sensor 157 H 154 H Pulse Rhythm Pulse Rhythm [Apical] Regular Pulse Strength Pulse Strength [Apical] Normal Respiratory Rate 17 18 20 Respiratory Effort / Characteristics Non-Labored Spontaneous Respiratory Depth Normal Respiratory Pattern Regular Blood Pressure 143/124 H 114/86 Blood Pressure [Left Arm] Blood Pressure [Right Arm] 114/86 Blood Pressure Mean 130 95 Blood Pressure Mean [Left Arm] Blood Pressure Mean [Right Arm] 95 Blood Pressure Position Blood Pressure Position [Left Arm] Blood Pressure Position [Right Arm] Sitting Pulse Oximetry 100 96 100 Oxygen Delivery Method Room Air Oxygen Flow Rate Sepsis Recent Fever Within 48 Hours Sepsis New/Unexplained Change in Mental Status Sepsis Action Taken by Nursing 08/24/21 13:00 08/24/21 13:30 08/24/21 14:22 Temperature 39.2 C H Temperature Source Oral Pulse Rate 137 H 139 H Pulse Rate [Apical] Pulse Rate from SpO2 Sensor 131 H 139 H Pulse Rhythm Pulse Rhythm [Apical] Pulse Strength Pulse Strength [Apical] Respiratory Rate 19 14 Respiratory Effort / Characteristics Respiratory Depth Respiratory Pattern Blood Pressure 133/87 114/70 Blood Pressure [Left Arm] Blood Pressure [Right Arm] Blood Pressure Mean 102 84 Blood Pressure Mean [Left Arm] Blood Pressure Mean [Right Arm] Blood Pressure Position Blood Pressure Position [Left Arm] Blood Pressure Position [Right Arm] Pulse Oximetry 100 98 Oxygen Delivery Method Room Air Oxygen Flow Rate Sepsis Recent Fever Within 48 Hours Sepsis New/Unexplained Change in Mental Status Sepsis Action Taken by Nursing 08/24/21 15:00 08/24/21 15:10 08/24/21 15:20 Temperature Temperature Source Pulse Rate 146 H 135 H 132 H Pulse Rate [Apical] Pulse Rate from SpO2 Sensor Pulse Rhythm Pulse Rhythm [Apical] Pulse Strength Pulse Strength [Apical] Respiratory Rate 20 17 Respiratory Effort / Characteristics Respiratory Depth Respiratory Pattern Blood Pressure 107/68 Blood Pressure [Left Arm] Blood Pressure [Right Arm] Blood Pressure Mean 81 Blood Pressure Mean [Left Arm] Blood Pressure Mean [Right Arm] Blood Pressure Position Blood Pressure Position [Left Arm] Blood Pressure Position [Right Arm] Pulse Oximetry 98 97 98 Oxygen Delivery Method Room Air Room Air Room Air Oxygen Flow Rate Sepsis Recent Fever Within 48 Hours Sepsis New/Unexplained Change in Mental Status Sepsis Action Taken by Nursing 08/24/21 15:30 08/24/21 15:40 08/24/21 15:47 Temperature 36.9 C Temperature Source Oral Pulse Rate 134 H 127 H Pulse Rate [Apical] Pulse Rate from SpO2 Sensor Pulse Rhythm Pulse Rhythm [Apical] Pulse Strength Pulse Strength [Apical] Respiratory Rate 18 16 Respiratory Effort / Characteristics Respiratory Depth Respiratory Pattern Blood Pressure 97/59 L Blood Pressure [Left Arm] Blood Pressure [Right Arm] Blood Pressure Mean 71 Blood Pressure Mean [Left Arm] Blood Pressure Mean [Right Arm] Blood Pressure Position Blood Pressure Position [Left Arm] Blood Pressure Position [Right Arm] Pulse Oximetry 98 97 Oxygen Delivery Method Room Air Room Air Oxygen Flow Rate Sepsis Recent Fever Within 48 Hours Sepsis New/Unexplained Change in Mental Status Sepsis Action Taken by Nursing 08/24/21 16:00 08/24/21 16:49 08/24/21 17:00 Temperature 38.1 C H 36.2 C L Temperature Source Oral Temporal Artery Scan Pulse Rate Pulse Rate [Apical] 112 H 115 H 109 H Pulse Rate from SpO2 Sensor Pulse Rhythm Pulse Rhythm [Apical] Regular Regular Pulse Strength Pulse Strength [Apical] Normal Normal Respiratory Rate 18 20 19 Respiratory Effort / Characteristics Non-Labored Spontaneous Non-Labored Spontaneous Normal for Patient Non-Labored Spontaneous Normal for Patient Respiratory Depth Normal Normal Normal Respiratory Pattern Regular Regular Regular Blood Pressure Blood Pressure [Left Arm] 95/56 L 93/50 L Blood Pressure [Right Arm] 105/81 Blood Pressure Mean Blood Pressure Mean [Left Arm] 69 64 Blood Pressure Mean [Right Arm] 89 Blood Pressure Position Blood Pressure Position [Left Arm] Semi-fowlers Semi-fowlers Blood Pressure Position [Right Arm] Sitting Pulse Oximetry 98 100 98 Oxygen Delivery Method Room Air Oxymask Oxymask Oxygen Flow Rate 6 6 Sepsis Recent Fever Within 48 Hours Sepsis New/Unexplained Change in Mental Status Sepsis Action Taken by Nursing Laboratory Data Result diagrams: 08/24/21 10:45 08/24/21 10:45 Lab Results 08/24/21 08/24/21 08/24/21 Range/Units 09:25 09:25 10:45 WBC 14.25 H (4.8-10.8) K/uL RBC 4.48 (4.2-5.4) M/uL Hgb 13.0 (12.0-16.0) g/dL POC Hgb (12.0-16.0) g/dl Hct 39.7 (37-47) % POC Hct (37-47) % MCV 88.6 (80-100) fL MCH 29.0 (25-34) pg MCHC 32.7 (32-36) g/dL RDW Std Deviation 44.8 (36.4-46.3) fL RDW Coeff of Jaqui 13.8 (11.5-14.5) % Plt Count 233 (130-400) K/uL MPV 11.0 H (7.4-10.4) fL Immature Gran % (Auto) 0.3 % Neut % (Auto) 82.8 % Lymph % (Auto) 5.5 % [place] % (Auto) 10.9 % Eos % (Auto) 0.3 % Baso % (Auto) 0.2 % Neut # (Auto) 11.80 H (1.4-6.5) K/uL Lymph # (Auto) 0.79 L (1.2-3.4) K/uL [place] # (Auto) 1.55 H (0.11-0.59) K/uL Eos # (Auto) 0.04 (0-0.5) K/uL Baso # (Auto) 0.03 (0-0.2) K/uL Immature Gran # (Auto) 0.04 H (0.00-0.02) K/uL POC Sodium (135-144) mmol/L Sodium (136-145) mmol/L POC Potassium (3.3-5.0) mmol/L Potassium (3.5-5.1) mmol/L POC Chloride (101-112) mmol/L Chloride (98-107) mmol/L Carbon Dioxide (21-32) mmol/L POC Total CO2 (24-31) mmol/L Anion Gap (3-11) POC Anion Gap (16-25) mmol/L POC BUN (7-18) mg/dl BUN (6-23) mg/dl Creatinine (0.6-1.2) mg/dl POC Creatinine (0.6-1.3) mg/dl Est Cr Clr Drug Dosing ml/min Est GFR ( Amer) ml/min Est GFR (Non-Af Amer) ml/min BUN/Creatinine Ratio (10-20) Glucose (70-99(Fasting)) mg/dl POC Glucose (other) (70-99) mg/dl Lactate (0.4-2.0) mmol/L Calcium (8.5-10.1) mg/dl POC Ioniz Calcium Shannon (1.12-1.32) mmol/l Total Bilirubin (0.2-1.0) mg/dl AST (13-39) U/L ALT (7-52) U/L Alkaline Phosphatase (34-104) U/L Total Protein (6.0-8.3) gm/dl Albumin (3.4-5.0) gm/dl Globulin (2.5-4.0) gm/dl Albumin/Globulin Ratio (0.9-2) Lipase (11-82) U/L Urine Color Yellow Urine Appearance Clear (Clear) Urine pH 7.5 (4.5-7.5) Ur Specific Bradford 1.012 (1.000-1.030) Urine Protein Negative (Negative) Urine Glucose (UA) Negative (Negative) Urine Ketones Negative (Negative) Urine Blood Negative (Negative) Urine Nitrite Negative (Negative) Urine Bilirubin Negative (Negative) Urine Urobilinogen Negative (Negative) Ur Leukocyte Esterase 3+ H (Negative) Urine WBC (Auto) >30 H (0-5) /hpf Urine RBC (Auto) 0-4 (0-4) /hpf U Hyaline Cast (Auto) 0 (0-5) /lpf U Epithel Cells (Auto) 0-5 (0-5) /lpf Urine Bacteria (Auto) 1+ H (Negative) POC Ur Test NEG (NEG) SARS-CoV-2, RNA, NAAT (NEGATIVE) 08/24/21 08/24/21 08/24/21 Range/Units 10:45 10:49 12:20 WBC (4.8-10.8) K/uL RBC (4.2-5.4) M/uL Hgb (12.0-16.0) g/dL POC Hgb 12.9 (12.0-16.0) g/dl Hct (37-47) % POC Hct 38 (37-47) % MCV (80-100) fL MCH (25-34) pg MCHC (32-36) g/dL RDW Std Deviation (36.4-46.3) fL RDW Coeff of Jaqui (11.5-14.5) % Plt Count (130-400) K/uL MPV (7.4-10.4) fL Immature Gran % (Auto) % Neut % (Auto) % Lymph % (Auto) % [place] % (Auto) % Eos % (Auto) % Baso % (Auto) % Neut # (Auto) (1.4-6.5) K/uL Lymph # (Auto) (1.2-3.4) K/uL [place] # (Auto) (0.11-0.59) K/uL Eos # (Auto) (0-0.5) K/uL Baso # (Auto) (0-0.2) K/uL Immature Gran # (Auto) (0.00-0.02) K/uL POC Sodium 138 (135-144) mmol/L Sodium 138 (136-145) mmol/L POC Potassium 4.3 (3.3-5.0) mmol/L Potassium 4.0 (3.5-5.1) mmol/L POC Chloride 107 (101-112) mmol/L Chloride 104 (98-107) mmol/L Carbon Dioxide 25 (21-32) mmol/L POC Total CO2 23 L (24-31) mmol/L Anion Gap 9 (3-11) POC Anion Gap 13.0 L (16-25) mmol/L POC BUN 9 (7-18) mg/dl BUN 9 (6-23) mg/dl Creatinine 0.64 (0.6-1.2) mg/dl POC Creatinine 0.5 L (0.6-1.3) mg/dl Est Cr Clr Drug Dosing 142.7 ml/min Est GFR ( Amer) 144.8 ml/min Est GFR (Non-Af Amer) 124.9 ml/min BUN/Creatinine Ratio 14.1 (10-20) Glucose 80 (70-99(Fasting)) mg/dl POC Glucose (other) 91 (70-99) mg/dl Lactate (0.4-2.0) mmol/L Calcium 9.7 (8.5-10.1) mg/dl POC Ioniz Calcium Shannon 1.07 L (1.12-1.32) mmol/l Total Bilirubin 0.6 (0.2-1.0) mg/dl AST 22 (13-39) U/L ALT 22 (7-52) U/L Alkaline Phosphatase 67 (34-104) U/L Total Protein 7.6 (6.0-8.3) gm/dl Albumin 4.3 (3.4-5.0) gm/dl Globulin 3.3 (2.5-4.0) gm/dl Albumin/Globulin Ratio 1.3 (0.9-2) Lipase 14 (11-82) U/L Urine Color Urine Appearance (Clear) Urine pH (4.5-7.5) Ur Specific [place] (1.000-1.030) Urine Protein (Negative) Urine Glucose (UA) (Negative) Urine Ketones (Negative) Urine Blood (Negative) Urine Nitrite (Negative) Urine Bilirubin (Negative) Urine Urobilinogen (Negative) Ur Leukocyte Esterase (Negative) Urine WBC (Auto) (0-5) /hpf Urine RBC (Auto) (0-4) /hpf U Hyaline Cast (Auto) (0-5) /lpf U Epithel Cells (Auto) (0-5) /lpf Urine Bacteria (Auto) (Negative) POC Ur Test (NEG) SARS-CoV-2, RNA, NAAT NEGATIVE (NEGATIVE) 08/24/21 Range/Units 15:09 WBC (4.8-10.8) K/uL RBC (4.2-5.4) M/uL Hgb (12.0-16.0) g/dL POC Hgb (12.0-16.0) g/dl Hct (37-47) % POC Hct (37-47) % MCV (80-100) fL MCH (25-34) pg MCHC (32-36) g/dL RDW Std Deviation (36.4-46.3) fL RDW Coeff of Jaqui (11.5-14.5) % Plt Count (130-400) K/uL MPV (7.4-10.4) fL Immature Gran % (Auto) % Neut % (Auto) % Lymph % (Auto) % [place] % (Auto) % Eos % (Auto) % Baso % (Auto) % Neut # (Auto) (1.4-6.5) K/uL Lymph # (Auto) (1.2-3.4) K/uL [place] # (Auto) (0.11-0.59) K/uL Eos # (Auto) (0-0.5) K/uL Baso # (Auto) (0-0.2) K/uL Immature Gran # (Auto) (0.00-0.02) K/uL POC Sodium (135-144) mmol/L Sodium (136-145) mmol/L POC Potassium (3.3-5.0) mmol/L Potassium (3.5-5.1) mmol/L POC Chloride (101-112) mmol/L Chloride (98-107) mmol/L Carbon Dioxide (21-32) mmol/L POC Total CO2 (24-31) mmol/L Anion Gap (3-11) POC Anion Gap (16-25) mmol/L POC BUN (7-18) mg/dl BUN (6-23) mg/dl Creatinine (0.6-1.2) mg/dl POC Creatinine (0.6-1.3) mg/dl Est Cr Clr Drug Dosing ml/min Est GFR ( Amer) ml/min Est GFR (Non-Af Amer) ml/min BUN/Creatinine Ratio (10-20) Glucose (70-99(Fasting)) mg/dl POC Glucose (other) (70-99) mg/dl Lactate 0.8 (0.4-2.0) mmol/L Calcium (8.5-10.1) mg/dl POC Ioniz Calcium Shannon (1.12-1.32) mmol/l Total Bilirubin (0.2-1.0) mg/dl AST (13-39) U/L ALT (7-52) U/L Alkaline Phosphatase (34-104) U/L Total Protein (6.0-8.3) gm/dl Albumin (3.4-5.0) gm/dl Globulin (2.5-4.0) gm/dl Albumin/Globulin Ratio (0.9-2) Lipase (11-82) U/L Urine Color Urine Appearance (Clear) Urine pH (4.5-7.5) Ur Specific [place] (1.000-1.030) Urine Protein (Negative) Urine Glucose (UA) (Negative) Urine Ketones (Negative) Urine Blood (Negative) Urine Nitrite (Negative) Urine Bilirubin (Negative) Urine Urobilinogen (Negative) Ur Leukocyte Esterase (Negative) Urine WBC (Auto) (0-5) /hpf Urine RBC (Auto) (0-4) /hpf U Hyaline Cast (Auto) (0-5) /lpf U Epithel Cells (Auto) (0-5) /lpf Urine Bacteria (Auto) (Negative) POC Ur Test (NEG) SARS-CoV-2, RNA, NAAT (NEGATIVE) Administered Medications Discontinued Medications Ciprofloxacin (Ciprofloxacin 500 Mg Tab) 500 mg PO NOW STA Stop: 08/24/21 12:06 Last Admin: 08/24/21 12:17 Dose: 500 mg Documented by: [id number] Diphenhydramine HCl (Diphenhydramine 50 Mg/Ml Vial) 50 mg IV NOW STA Stop: 08/24/21 12:31 Last Admin: 08/24/21 12:45 Dose: 50 mg Documented by: [id number] Sodium Chloride (Nss 1000ml) 1,000 mls @ 999 mls/hr IV .Q1H1M STA Stop: 08/24/21 10:29 Last Infusion: 08/24/21 11:55 Dose: 0 mls/hr Documented by: [id number] Admin: 08/24/21 10:49 Dose: 999 mls/hr Documented by: [id number] Ceftriaxone Sodium (Rocephin) 2,000 mg in 70 mls @ 140 mls/hr IV NOW STA Stop: 08/24/21 12:30 Last Infusion: 08/24/21 12:35 Dose: 0 mls/hr Documented by: [id number] Admin: 08/24/21 12:15 Dose: 140 mls/hr Documented by: [id number] Sodium Chloride (Nss 1000ml) 1,000 mls @ 999 mls/hr IV .Q1H1M ONE Stop: 08/24/21 13:05 Last Infusion: 08/24/21 13:45 Dose: 0 mls/hr Documented by: [id number] Admin: 08/24/21 12:19 Dose: 999 mls/hr Documented by: [id number] Acetaminophen (Ofirmev) 1,000 mg in 100 mls @ 400 mls/hr IV NOW STA Stop: 08/24/21 14:35 Last Infusion: 08/24/21 15:45 Dose: 0 mls/hr Documented by: [id number] Admin: 08/24/21 14:28 Dose: 400 mls/hr Documented by: [id number] Gentamicin Sulfate 80 mg/ (Dextrose) 102 mls @ 100 mls/hr IV ONCE ONE Stop: 08/24/21 16:46 Last Admin: 08/24/21 16:18 Dose: 100 mls/hr Documented by: [id number] Ioversol (Optiray 320 100ml) 95 ml IV ONCE ONE Stop: 08/24/21 11:15 Last Admin: 08/24/21 11:14 Dose: 95 ml Documented by: [id number] Ketorolac Tromethamine (Ketorolac Tromethamine 15 Mg/Ml Vial) 10 mg IV NOW STA Stop: 08/24/21 09:30 Last Admin: 08/24/21 10:39 Dose: 10 mg Documented by: [id number] Ondansetron HCl (Ondansetron Inj 2 Mg/Ml 2 Ml Vial) 4 mg IV NOW STA Stop: 08/24/21 09:30 Last Admin: 08/24/21 10:39 Dose: 4 mg Documented by: [id number] Tamsulosin HCl (Tamsulosin Hcl 0.4 Mg Cap) 0.4 mg PO NOW ONE Stop: 08/24/21 12:06 Last Admin: 08/24/21 12:17 Dose: 0.4 mg Documented by: [id number] Imaging Data Radiologist's Impression: Abdomen/Pelvis CT 08/24/21 09:29 CT OF THE ABDOMEN AND PELVIS WITH CONTRAST CLINICAL HISTORY: left flank pain, urinary symptoms COMPARISON STUDY: Right upper quadrant ultrasound November 16, 2013. TECHNIQUE: Following IV administration of 95 mL of Optiray, axial images of the abdomen and pelvis were obtained from the lung bases to the proximal femurs. Images were reviewed in the axial, sagittal, and coronal planes. IV contrast was administered without complication. Automated exposure control was utilized for the study. A dose lowering technique was utilized adhering to the principles of ALARA. CT DOSE: 624.63 mGy.cm FINDINGS: Lung bases are unremarkable. 6 mm left ureteropelvic junction calculus results in mild left hydronephrosis with delayed nephrogram. Sensitivity for detection of right renal calculi diminished given excreted contrast but no additional calculi are identified. There are no bladder calculi. There is no significant biliary ductal dilatation status post cholecystectomy. No hepatic lesions are present. Spleen, adrenal glands and pancreas are unremarkable. No peripancreatic infiltration or fluid. A few prominent loops of small bowel within the upper abdomen are present without evidence for a bowel obstruction. Caliber and wall thickness of small and large bowel are normal. Appendix is normal. Trace fluid within the pelvis is likely physiologic. Ovaries are not enlarged. Major vasculature is patent. No suspicious osseous lesions. IMPRESSION: 6 mm left ureteropelvic junction calculus which results in mild left hydronephrosis with delayed nephrogram. ACT 112: Negative or not required by law. Electronically signed by: Derrick Schwarz M.D. 08/24/2021 11:31 AM Retrograde Pyelogram 08/24/21 15:39 FL retrograde includes kub CLINICAL HISTORY: LEFT CYSTO/STENT COMPARISON STUDY: None. FLUOROSCOPY TIME: 17 second. FINDINGS: 6 fluoroscopic spot images of the abdomen and pelvis demonstrate retrograde opacification of the left renal collecting system followed by placement of a ureteral stent. Ureteral stent appears in good position. IMPRESSION: Fluoroscopic assistance provided for left ureteral stent placement which appears in good position. ACT 112: Negative or not required by law. Electronically signed by: Anibal Marc M.D. 08/24/2021 4:56 PM Discharge Plan Visit Data Chief Complaint: Flank Pain Stated Complaint: BACK, AND ABD PAIN ED Provider: Yusuf Paul ED Midlevel Provider: Traci Wilkerson Discharge Problem: Obstruction of left ureteropelvic junction (UPJ) due to stone, Pyelonephritis of left kidney, Sepsis Patient Disposition: Admitted As Inpatient Discharge Instructions Interventions: ED Discharge Assessment Last Done: 08/24/21 16:07
[2021-08-24 09:46] LABS: Appearance Urine Clear (Clear); Bacteria Urine Automated 1+ (Negative); Bilirubin Urine Negative (Negative); Blood Urine Negative (Negative); Cast Urine Automated 0 /lpf (0-5); Color Urine Yellow; Epithelial Cell Urine Auto 0-5 /lpf (0-5); Glucose Urine UA Negative (Negative); Ketones Urine Negative (Negative); Leukocyte Esterase Urine 3+ (Negative); Nitrite Urine Negative (Negative); Protein Urine Negative (Negative); RBC Urine Automated 0-4 /hpf (0-4); Specific Gravity Urine 1.012 (1.000-1.030); Urobilinogen Urine Negative (Negative); WBC Urine Automated >30 /hpf (0-5); pH Urine 7.5 (4.5-7.5)
[2021-08-24 10:57] LABS: Basophils # (auto) 0.03 K/uL (0-0.2); Basophils % (auto) 0.2 %; Eosinophils # (auto) 0.04 K/uL (0-0.5); Eosinophils % (auto) 0.3 %; Hematocrit (blood only) 39.7 % (37-47); Immature Granulocytes # (auto) 0.04 K/uL (0.00-0.02); Immature Granulocytes % (auto) 0.3 %; Lymphocytes # (auto) 0.79 K/uL (1.2-3.4); Lymphocytes % (auto) 5.5 %; Mean Corpuscular Hgb Conc 32.7 g/dL (32-36); Mean Corpuscular Volume 88.6 fL (80-100); Monocytes # (auto) 1.55 K/uL (0.11-0.59); Monocytes % (auto) 10.9 %; Neutrophils % (auto) 82.8 %; Platelet Count 233 K/uL (130-400); RDW Coefficient of Variation 13.8 % (11.5-14.5); RDW Standard Deviation 44.8 fL (36.4-46.3); Red Blood Count 4.48 M/uL (4.2-5.4); White Blood Count 14.25 K/uL (4.8-10.8)
[2021-08-24 11:03] LABS: iSTAT Creatinine 0.5 mg/dl (0.6-1.3); iSTAT Hemoglobin 12.9 g/dl (12.0-16.0); iSTAT Ionized Calcium 1.07 mmol/l (1.12-1.32); iSTAT Potassium 4.3 mmol/L (3.3-5.0)
[2021-08-24] MEDS ORDERED: OPTIRAY 320 100ml IV ONE (11:14)
[2021-08-24 11:18] LABS: Albumin Globulin Ratio 1.3 (0.9-2); Albumin Level 4.3 gm/dl (3.4-5.0); BUN Creatinine Ratio 14.1 (10-20); Bilirubin,Total 0.6 mg/dl (0.2-1.0); Calcium 9.7 mg/dl (8.5-10.1); Creatinine Clr Calc Pharmacy 142.7 ml/min; Est GFR (African American) 144.8 ml/min; Est GFR (Non-African American) 124.9 ml/min; Globulin 3.3 gm/dl (2.5-4.0); Total Protein 7.6 gm/dl (6.0-8.3)
--- NOTE | 2021-08-24 11:33 | CT Scan Report ---
CT OF THE ABDOMEN AND PELVIS WITH CONTRAST CLINICAL HISTORY: left flank pain, urinary symptoms COMPARISON STUDY: Right upper quadrant ultrasound November 16, 2013. TECHNIQUE: Following IV administration of 95 mL of Optiray, axial images of the abdomen and pelvis we re obtained from the lung bases to the proximal femurs. Images were reviewed in the axial, sagittal, and coronal planes. IV contrast was administered without complication. Automated exposure control wa s utilized for the study. A dose lowering technique was utilized adhering to the principles of ALARA . CT DOSE: 624.63 mGy.cm FINDINGS: Lung bases are unremarkable. 6 mm left ureteropelvic junction calculus results in mild left hydronephrosis with delayed nephrogram. Sensitivity for detection of right renal calculi diminished given excreted contrast but no additional calculi are identified. There are no bladder calculi. There is no significant biliary ductal dilatation status post cholecystectomy. No hepatic lesions are pres ent. Spleen, adrenal glands and pancreas are unremarkable. No peripancreatic infiltration or fluid. A few prominent loops of small bowel within the upper abdomen are present without evidence for a bowel obstruction. Caliber and wall thickness of small and large bowel are normal. Appendix is normal. Tra ce fluid within the pelvis is likely physiologic. Ovaries are not enlarged. Major vasculature is araujo nt. No suspicious osseous lesions. IMPRESSION: 6 mm left ureteropelvic junction calculus which results in mild left hydronephrosis with delayed nephrogram. ACT 112: Negative or not required by law. Electronically signed by: Derrick Schwarz M.D. 08/24/2021 11:31 AM
[2021-08-24] MEDS ORDERED: cefTRIAXone SODIUM 2,000 MG/70 ML BAG IV STA (12:01)
[2021-08-24] MEDS ORDERED: TAMSULOSIN HCL 0.4 MG CAP PO ONE (12:05)
[2021-08-24] MEDS ORDERED: CIPROFLOXACIN 500 MG TAB PO STA (12:05)
[2021-08-24] MEDS ORDERED: SODIUM CHLORIDE 0.9% 1000ML 1,000 ML IV ONE (12:05)
[2021-08-24] MEDS ORDERED: diphenhydrAMINE 50 MG/ML VIAL IV STA (12:30)
[2021-08-24] MEDS ORDERED: ACETAMINOPHEN 1,000 MG/100 ML VIAL IV STA (14:21)
[2021-08-24] MEDS ORDERED: fentaNYL citrate 100 MCG/2 ML VIAL IV PRN (15:27)
[2021-08-24] MEDS ORDERED: ONDANSETRON INJ 2 MG/ML 2 ML VIAL IV PRN ×2 (15:27→18:24)
[2021-08-24] MEDS ORDERED: ATROPINE SULFATE 0.1 MG/ML 10ML SYR IV PRN (15:27)
[2021-08-24] MEDS ORDERED: ePHEDrine sulfate 50 MG/ML AMP IV PRN (15:27)
--- NOTE | 2021-08-24 15:27 | History & Physical Report ---
Date of Service August 24, 2021 Assessment & Plan (1) Sepsis syndrome: Plan: 25-year-old with no significant PMHx presented with left flank pain ongoing X 2 days, associated N/V and dysuria. ED work-up reveals evidence of sepsis syndrome and an obstructing left ureteral stone. - SIRS criteria: Leukocytosis of 14K with a left shift, fever of 102.56, and tachycardia of 139. Lactic acid missing (will obtain). BP stable - Likely related to UTI with obstructing stone - Empiric abx therapy (Cirpo as pt with adverse reaction to Rocephin given in ED) - Continue aggressive IV hydration -Antipyretics and antiemetics as needed - Urine culture and blood cultures obtained. Final culture data to help guide antibiotic therapy - Spoke with ED provider who discussed case with urology. Plan is for cystoscopy this afternoon with ureteral stent placement. Appreciate assistance (2) Obstructive uropathy: Plan: - CT reveals 6 mm obstructing stone in the left ureteropelvic junction with left-sided hydronephrosis - For cystoscopy with ureteral stent today given associated sepsis syndrome - Urology consulted. Appreciate assistance (3) Adverse drug reaction: Plan: - Initially given Rocephin in the ED and subsequently developed hyperemia, increased tachycardia, generalized pruritus and flushing--> treated with IV Benadryl and symptoms improved - Pepcid on board (for GI prophylaxis) which will also provide histamine blockade in addition to her routine Zyrtec which will be continued - Continue to monitor - Allergy list updated Plan: Full code SCDs and ambulation for DVT prophylaxis Plan of care to be D/W Dr. Guaman. Further orders as warranted History of Present Illness Chief Complaint: Left flank pain x 2 days Primary Care Provider: Damian Lawrence Mrs. Tang is a 25 y/o WF with no significant PMHx who presented to the ED c/o Left sided flank pain. Started in Left lower back with radiation around to the front. Constant and described as sharp/stabbing. Worse when lifting left leg. 10 out of 10 at its worst. Has associated subjective fevers, chills, nausea and vomiting. In addition, dysuria noted. No hematuria or frequency. Presented to the ED where she was initially found to be hemodynamically stable and afebrile. White blood cell count elevated at 14K and urine is leukocyte esterase positive. CT scan shows a 6 mm stone in the left ureteropelvic junction with left-sided hydronephrosis. Initially treated with IV fluids and 1 dose of IV Rocephin with plan to discharged home for outpatient urologic care; however, she has since become tachycardic (140s), and has spiked a fever of 102.56. Urology notified and plan is to take her to the operating room today for intervention/stent. Allergies Allergy/AdvReac Type Severity Reaction Status Date / Time ceftriaxone [From Rocephin] AdvReac tachycardia, Verified 08/24/21 15:36 flushing, hyperemia Home Medications Medication Instructions Recorded Confirmed Type lactase 3,000 unit tablet (Lactaid) 3,000 unit PO AC PRN 10/31/18 08/24/21 History cetirizine 10 mg capsule (Zyrtec) 10 mg PO DAILY 02/24/21 08/24/21 History cholecalciferol (vitamin D3) 25 25 mcg PO DAILY 08/24/21 08/24/21 History mcg (1,000 unit) tablet (Vitamin D3) docusate sodium 100 mg capsule 100 mg PO DAILY 08/24/21 08/24/21 History (Colace) Past Med/Surg History Medical History Anxiety Diarrhea Enlarged thyroid gland Lower abdominal pain Panic disorder Surgical History History of cholecystectomy History of open reduction and internal fixation (ORIF) procedure right foot fx--no hardware History of wisdom tooth extraction Family History Grandfather (Maternal) Family history of diabetes mellitus Diabetes Aunt Family hx of colon cancer Other No family history of adverse response to anesthesia Social History Smoking Status: Never smoker Second Hand Exposure: No; Hx Alcohol Use: Yes Alcohol type: beer, wine and hard liquor Hx Substance Use: No Preferred Language: Persian Communication Ability: Effective City Routeman Required: No Beliefs That Will Affect Care: None marital status: marital status details: Kyle (23) [phone] Current Living Situation: Spouse Current Living Situation Comment: lives with spouse and her parents, dogs, cats, mom changes litter current occupational status: employed current occupation: RN @ [employer] Feels Safe at Home: Yes Assistive Devices: None Review of Systems Review of Systems: All systems reviewed and are unremarkable except as noted in HPI and below Denies fevers, chills, headache, nasal congestion, sore throat, cough, chest pain, shortness of breath, palpitations, orthopnea, PND, abdominal pain, diarrhea, constipation, dysuria, hematuria, frequency, back pain, joint pain or swelling, easy bruising or bleeding, skin lesions or rashes. Physical Exam Physical Exam: General: Resting comfortably in her hospital bed. Despite fever and leukocytosis/early sepsis syndrome, she does not appear ill or toxic NAD. HEENT: Head is AT/NC. Buccal mucosa is moist and pink Neck: No JVD. Negative hepatojugular reflex Cardiac: Sinus tachycardia in the 120s to 130s at present without M/G/R Lungs: CTA without W/R/R Abdomen: Normoactive X4. Soft and nontender in all quadrants. Mild left CVA tenderness Extremities: No peripheral clubbing cyanosis or edema Neuro: A&O X4. Cranial nerves II through XII are grossly intact. No focal neuro deficits Skin: No obvious skin lesions or rashes Psych: Appropriate affect. Pleasant and cooperative Results & Data Results & Data ([facility]) Vital Signs (Past 12 Hours) Vital Signs Temp Pulse Pulse Resp BP BP Pulse Ox 08/24/21 14:22 39.2 C H 08/24/21 13:30 139 H 14 114/70 98 08/24/21 13:00 137 H 19 133/87 100 08/24/21 12:51 127 H 20 114/86 100 08/24/21 12:45 153 H 18 114/86 96 08/24/21 12:42 154 H 17 143/124 H 100 08/24/21 12:35 158 H 20 141/84 H 99 08/24/21 12:30 178 H 18 141/84 H 95 08/24/21 12:00 113 H 16 122/85 99 08/24/21 11:30 103 H 19 109/73 99 08/24/21 11:28 98 08/24/21 11:15 113 H 22 08/24/21 10:30 114 H 17 100 08/24/21 10:04 115 H 28 H 100 08/24/21 09:06 36.2 C L 120 H 18 131/69 100 Laboratory Results 08/24/21 10:45 08/24/21 10:45 Urinalysis is leukocyte esterase positive. Nitrite negative. Covid test: Negative Diagnostic Findings CT of the abdomen and pelvis: IMPRESSION: 6 mm left ureteropelvic junction calculus which results in mild left hydronephrosis with delayed nephrogram. Code Status & VTE Plan VTE Prophylaxis Plan VTE Prophylaxis will be ordered: Yes Supervising Physician Co-Signing Physician Notes Patient was seen and examined independently I discussed the case with Chantal NAVA I reviewed pertinent past medical social family history and also the plan of care and agree with the plan of care. pt with renal colic, 6mm stone with some signs concerning for sepsis, take urgently to OR, left ureteral stent placed, recovered well, continue IV Zosyn Pt was examined post operatively she is stable and with only mild left flank p ain Any exceptions will be noted below PG Care Time/CCT Total # of Minutes Spent Total Time Spent with Patient: Total time spent is greater than 50% in coordination of care (as documented) at patient's floor/unit and/or counseling patient: Coding Level of Care Code 67380 Initial Inpt Care Lvl 3 Diagnoses Sepsis syndrome Obstructive uropathy N13.9 Adverse drug reaction T50.905A
--- NOTE | 2021-08-24 15:31 | Anesthesiology Consultation ---
Date of Service August 24, 2021 Assessment & Plan (1) Encounter for pre-operative examination: Chart Review Chart Review: Acceptable Risk for Surgery and Patient NOT seen in Pre Admission Testing Consults Requested none History Surgery Operation Date: 08/24/21 18:35 Proposed Procedures p Cystoscopy, Retrograde Pyelogram, Left Ureteral Stent Placement - Sukumar Choi, DO Height/Weight Height: 5 ft 3.5 in Weight: 86.4 kg Allergies Allergy/AdvReac Type Severity Reaction Status Date / Time ceftriaxone [From Rocephin] AdvReac tachycardia, Verified 08/24/21 15:36 flushing, hyperemia Medications Home Medications Medication Instructions Recorded Confirmed Last Taken lactase 3,000 unit tablet (Lactaid) 3,000 unit PO AC PRN 10/31/18 08/24/21 02/23/21 07:00 cetirizine 10 mg capsule (Zyrtec) 10 mg PO DAILY 02/24/21 08/24/21 08/23/21 cholecalciferol (vitamin D3) 25 25 mcg PO DAILY 08/24/21 08/24/21 08/23/21 mcg (1,000 unit) tablet (Vitamin D3) docusate sodium 100 mg capsule 100 mg PO DAILY 08/24/21 08/24/21 08/23/21 (Colace) Past Medical History Medical History Anxiety Diarrhea Enlarged thyroid gland Lower abdominal pain Panic disorder Exercise / Class Metabolic Activity II 4-5 Yardwork/Stairs/Walk up hill Past Family History Family History Grandfather (Maternal) Family history of diabetes mellitus Diabetes Aunt Family hx of colon cancer Other No family history of adverse response to anesthesia Past Surgical History Surgical History History of cholecystectomy History of open reduction and internal fixation (ORIF) procedure right foot fx--no hardware History of wisdom tooth extraction Past Anesthesia History No Hx of Anesthesia Complications and No Family Hx of Anesthesia Complications Social History Smoking Status: Never smoker Hx Alcohol Use: Yes Alcohol type: beer, wine and hard liquor alcohol intake frequency: a few times a month Hx Substance Use: No substance use type: does not use Physical Exam Vital Signs Last Vital Signs Temp 36.9 C 08/24/21 15:47 Pulse 127 H 08/24/21 15:40 Resp 16 08/24/21 15:40 BP 97/59 L 08/24/21 15:30 Pulse Ox 97 08/24/21 15:40 Testing Laboratory Results 08/24/21 10:45 08/24/21 10:45 Urine Color Yellow 08/24/21 09:25 Urine Appearance Clear (Clear) 08/24/21 09:25 Urine pH 7.5 (4.5-7.5) 08/24/21 09:25 Ur Specific [place] 1.012 (1.000-1.030) 08/24/21 09:25 Urine Protein Negative (Negative) 08/24/21 09:25 Urine Glucose (UA) Negative (Negative) 08/24/21 09:25 Urine Ketones Negative (Negative) 08/24/21 09:25 Urine Nitrite Negative (Negative) 08/24/21 09:25 Ur Leukocyte Esterase 3+ (Negative) H 08/24/21 09:25 Urine WBC (Auto) >30 /hpf (0-5) H 08/24/21 09:25 Urine RBC (Auto) 0-4 /hpf (0-4) 08/24/21 09:25 U Hyaline Cast (Auto) 0 /lpf (0-5) 08/24/21 09:25 U Epithel Cells (Auto) 0-5 /lpf (0-5) 08/24/21 09:25 Urine Bacteria (Auto) 1+ (Negative) H 08/24/21 09:25 08/24/21 10:49 POC Glucose (other) 91 08/24/21 09:25 POC Ur Test NEG
[2021-08-24] MEDS ORDERED: LIDOCAINE 2% 2 ML VIAL/AMP(20MG/ML) INFIL ONE (15:33)
[2021-08-24] MEDS ORDERED: PROPOFOL IV EMULSION 10 MG/ML 20 ML VIAL IV ONE (15:33)
[2021-08-24] MEDS ORDERED: fentaNYL citrate 100 MCG/2 ML VIAL ONE (15:33)
[2021-08-24] MEDS ORDERED: DEXAMETHASONE SOD INJ 4 MG/ML VIAL ONE (15:33)
[2021-08-24] MEDS ORDERED: ONDANSETRON INJ 2 MG/ML 2 ML VIAL ONE (15:33)
[2021-08-24] MEDS ORDERED: MIDAZOLAM HCL 1 MG/ML 2ML VIAL ONE (15:33)
[2021-08-24] MEDS ORDERED: GENTAMICIN SULFATE 80 MG in DEXTROSE 5% 100 ML IV ONE (15:45)
[2021-08-24] MEDS ORDERED: ACETAMINOPHEN 325 MG TAB PO PRN (15:48)
--- NOTE | 2021-08-24 15:58 | Urology Consultation ---
Date of Consultation August 24, 2021 Assessment & Plan (1) Obstructive uropathy: (2) Sepsis syndrome: (3) Obstruction of left ureteropelvic junction (UPJ) due to stone: (4) Pyelonephritis of left kidney: (5) Sepsis: Patient initially being evaluated in the ER due to obstructing stone c ausing significant abdominal pain. During the course of work-up patient became tachycardic, hypotensive, and developed severe febrile reaction. Patient was in the midst of antibiotic treatment during this time. Was immediately reevaluated with plans for admission and more intensive/critical management. Patient is undergoing large volume resuscitation. Patient has an obstructing 6 mm UPJ stone on left On our recommendations gentamicin has been ordered with plans for preoperative dose for broad gram-negative coverage. Patient had a few sips of clear liquid to take some pills earlier in the day however has not eaten or drank anything substantial since 7 PM the night before. Had already undergone Covid testing. Was negative. Patient is critically ill with sepsis likely pyelonephritis from obstructing stone. Discussed urgent intervention and need for treatment as soon as possible. With decompression with stent. Risks and benefits discussed at length for procedure. These include bleeding, infection, injury to surrounding tissues or organs, and risks associated with anesthesia. Patient states understanding and agrees to proceed. Will sign consent and pr oceed with emergent procedure. Plan for cystoscopy and left stent placement History of Present Illness History of Present Illness Urgent/emergent consultation for acutely ill and septic patient with UTI/Pyelo, discomfort, and ill feelings. Patient was initially evaluated in the ER due to significant abdominal pain. Madden d undergone work-up. Found to have obstructing stone. Plan was initially to have patient set up for outpatient work-up and possible intervention towards the end of the week however during administration of antibiotics, patient became acutely ill. Had severe tachycardia hypotension and severely elevated temperature up to 39.2. Patient was on Rocephin at the time. Had a oral dose of Cipro earlier. Prior to evaluation, patient developed sudden onset of pain into flank going down and radiating into groin and back in waves comes and goes. Can be severe at times. Acute illness with development of sepsis started while in the emergency room Discussed and reviewed patient's personal medical, surgical, social, and family history for any history of issues, infections, and disease. Also, discussed patient's medical/surgery history especially related to any history of urinary issues or stone disease. Patient has recently had a normal with vaginal delivery approximately 6 months ago Patient is undergoing intense/critical management for acute illness and is being admitted to undergo resuscitation and supportive care by the hospitalist team. Hospitalist has admitted and is undergoing observation with broad spectrum IV antibiotics and will need emergent stent. Patient did not complete the Rocephin will utilize gentamicin for broad gram-negative coverage Allergies Allergy/AdvReac Type Severity Reaction Status Date / Time ceftriaxone [From Rocephin] AdvReac tachycardia, Verified 08/24/21 15:36 flushing, hyperemia Home Medications Medication Instructions Recorded Confirmed Type lactase 3,000 unit tablet (Lactaid) 3,000 unit PO AC PRN 10/31/18 08/24/21 History cetirizine 10 mg capsule (Zyrtec) 10 mg PO DAILY 02/24/21 08/24/21 History cholecalciferol (vitamin D3) 25 25 mcg PO DAILY 08/24/21 08/24/21 History mcg (1,000 unit) tablet (Vitamin D3) docusate sodium 100 mg capsule 100 mg PO DAILY 08/24/21 08/24/21 History (Colace) Patient History Medical History Anxiety Diarrhea Enlarged thyroid gland Lower abdominal pain Panic disorder Surgical History History of cholecystectomy History of open reduction and internal fixation (ORIF) procedure right foot fx--no hardware History of wisdom tooth extraction Family History Grandfather (Maternal) Family history of diabetes mellitus Diabetes Aunt Family hx of colon cancer Other No family history of adverse response to anesthesia Social History Smoking Status: Never smoker Second Hand Exposure: No; Hx Alcohol Use: Yes Alcohol type: beer, wine and hard liquor Hx Substance Use: No Preferred Language: Armenian Communication Ability: Effective Sprinkler Fitter Apprentice Required: No Beliefs That Will Affect Care: None marital status: marital status details: Kyle (23) [phone] Current Living Situation: Spouse Current Living Situation Comment: lives with spouse and her parents, dogs, cats, mom changes litter current occupational status: employed 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 Undergoing critical care management for acute severe infection HEENT: Normocephalic Atraumatic. Inspection normal. Cranial Nerves 2-12 Grossly intact. Nares are clear. Neck is supple. Normal inspection of face. Normal inspection of neck. Neurologic: No deficits on inspection. Baseline for motor function and sensory. Psychologic: Anxious, acute delirium secondary to illness Respiratory: Mild labored. No use of accessory muscles. No severe dyspnea. Cardiovascular: tachycardia Skin: [place] and Dry. No rashes or visible lesions. Febrile Extremities: Moving without issues. No motor deficits on inspection Lymphatics: Mild edema Abdomen: Mildly distended. No rebound or guarding. Mild suprapubic/flank tenderness Results & Data ([facility]) Vital Signs (Past 12 Hours) Vital Signs Temp Pulse Pulse Resp BP BP Pulse Ox 08/24/21 15:47 36.9 C 08/24/21 15:40 127 H 16 97 08/24/21 15:30 134 H 18 97/59 L 98 08/24/21 15:20 132 H 98 08/24/21 15:10 135 H 17 97 08/24/21 15:00 146 H 20 107/68 98 08/24/21 14:22 39.2 C H 08/24/21 13:30 139 H 14 114/70 98 08/24/21 13:00 137 H 19 133/87 100 08/24/21 12:51 127 H 20 114/86 100 08/24/21 12:45 153 H 18 114/86 96 08/24/21 12:42 154 H 17 143/124 H 100 08/24/21 12:35 158 H 20 141/84 H 99 08/24/21 12:30 178 H 18 141/84 H 95 08/24/21 12:00 113 H 16 122/85 99 08/24/21 11:30 103 H 19 109/73 99 08/24/21 11:28 98 08/24/21 11:15 113 H 22 08/24/21 10:30 114 H 17 100 08/24/21 10:04 115 H 28 H 100 08/24/21 09:06 36.2 C L 120 H 18 131/69 100 PG Care Time/CCT Total # of Minutes Spent Total Time Spent with Patient: Total time spent is greater than 50% in coordination of care (as documented) at patient's floor/unit and/or counseling patient: Coding Level of Care Code 42875 Inpt Consult Level 5 Diagnoses Obstructive uropathy N13.9 Sepsis syndrome Obstruction of left ureteropelvic junction (UPJ) due to stone N20.1 Pyelonephritis of left kidney N12 Sepsis A41.9
[2021-08-24] MEDS ORDERED: KETAMINE 50 MG/5 ML SYRINGE ONE (16:27)
--- NOTE | 2021-08-24 16:41 | Operative Report ---
PG Post Operative Report Pre & Post Diagnosis Operation Date: 08/24/21 18:35 Pre-Op Diagnosis: sepsis, obstructing left ureteral stone Same I identified the patient and participated in the time-out.: Yes Procedure Operation Date: 08/24/21 18:35 Actual Procedures p Cystoscopy with Left Aspiration, left Retrograde Pyelogram, and Left Ureteral Stent Placement - Sukumar Choi, Surgeon Sukumar Choi, II, DO Interface Designer None Estimated Blood Loss 1 Findings Consistent with Post-Op Diagnosis Stent placed in good position. Specimens None Drains 6 Fr x 24 Anesthesia Type MAC Complications none Disposition Disposition: Recovery Room Indications Patient with obstruction. Risks and benefits discussed at length. Description of Procedure Patient was consented and brought back to the operating room. Patient was placed under anesthesia in the supine position and moved to the dorsal lithotomy position. Patient was prepped and draped in the regular sterile fashion. A time out was completed. A 30degree Cystoscope was placed into the bladder and the entire bladder was examined. The UO's were identified. The UO was cannulized with a catheter, urine was aspirated, and a retrograde pyelogram was completed. A wire was then placed. With the wire in place, a 6 Fr Double J stent was placed. It was confirmed with fluoroscopy. With the stent in place, the bladder was emptied. The scope was removed. The patient was cleaned, aroused from anesthesia, and transferred to the pacu in stable condition having tolerated the procedure well with no complications. I was present and participated in all aspects of the procedure. The patient will be monitored in the PACU until transferred. Will plan to observe over the next day. Monitor cultures. Likely home with 1-2 weeks of abx and plan for stone treatment to be set up after completed antibiotics. I attest to the content of the Intraoperative Record and any orders documented therein. Any exceptions are noted below.
[2021-08-24] MEDS ORDERED: DIATRIZOATE MEGLUMINE 30% 100ML VIAL INSTIL ONE (16:57)
--- NOTE | 2021-08-24 16:57 | Fluoroscopy Report ---
FL retrograde includes kub CLINICAL HISTORY: LEFT CYSTO/STENT COMPARISON STUDY: None. FLUOROSCOPY TIME: 17 second. FINDINGS: 6 fluoroscopic spot images of the abdomen and pelvis demonstrate retrograde opacification o f the left renal collecting system followed by placement of a ureteral stent. Ureteral stent appears in good position. IMPRESSION: Fluoroscopic assistance provided for left ureteral stent placement which appears in good position. ACT 112: Negative or not required by law. Electronically signed by: Anibal Marc M.D. 08/24/2021 4:56 PM
[2021-08-24] MEDS ORDERED: LACTATED RINGER'S 1,000 ML IV SCH (18:24)
[2021-08-24] MEDS ORDERED: MAGNESIUM HYDROXIDE SUSP 30 ML UDC PO PRN (18:24)
[2021-08-24] MEDS ORDERED: LACTASE 3000 UNIT TAB PO PRN (18:24)
[2021-08-24] MEDS ORDERED: ALUMINUM/MAGNESIUM SUSP 30 ML UDC PO PRN (18:24)
--- NOTE | 2021-08-24 18:35 | Anesthesiology Progress Note ---
Date of Service August 24, 2021 Anesthesia Post Procedure Vital Signs Vital Signs: Temp Pulse Pulse Resp BP BP BP 08/24/21 17:53 36.9 C 115 H 16 94/59 L 08/24/21 17:30 100 H 18 94/53 L 08/24/21 17:20 100 H 18 94/49 L 08/24/21 17:10 37 C 104 H 18 95/51 L 08/24/21 17:00 109 H 19 93/50 L 08/24/21 16:49 36.2 C L 115 H 20 95/56 L 08/24/21 16:00 38.1 C H 112 H 18 105/81 08/24/21 15:47 36.9 C 08/24/21 15:40 127 H 16 08/24/21 15:30 134 H 18 97/59 L 08/24/21 15:20 132 H 08/24/21 15:10 135 H 17 08/24/21 15:00 146 H 20 107/68 08/24/21 14:22 39.2 C H 08/24/21 13:30 139 H 14 114/70 08/24/21 13:00 137 H 19 133/87 08/24/21 12:51 127 H 20 114/86 08/24/21 12:45 153 H 18 114/86 08/24/21 12:42 154 H 17 143/124 H 08/24/21 12:35 158 H 20 141/84 H 08/24/21 12:30 178 H 18 141/84 H 08/24/21 12:00 113 H 16 122/85 08/24/21 11:30 103 H 19 109/73 08/24/21 11:28 08/24/21 11:15 113 H 22 08/24/21 10:30 114 H 17 08/24/21 10:04 115 H 28 H 08/24/21 09:06 36.2 C L 120 H 18 131/69 Pulse Ox 08/24/21 17:53 96 08/24/21 17:30 96 08/24/21 17:20 97 08/24/21 17:10 98 08/24/21 17:00 98 08/24/21 16:49 100 08/24/21 16:00 98 08/24/21 15:47 08/24/21 15:40 97 08/24/21 15:30 98 08/24/21 15:20 98 08/24/21 15:10 97 08/24/21 15:00 98 08/24/21 14:22 08/24/21 13:30 98 08/24/21 13:00 100 08/24/21 12:51 100 08/24/21 12:45 96 08/24/21 12:42 100 08/24/21 12:35 99 08/24/21 12:30 95 08/24/21 12:00 99 08/24/21 11:30 99 08/24/21 11:28 98 08/24/21 11:15 08/24/21 10:30 100 08/24/21 10:04 100 08/24/21 09:06 100 Pain Intensity Left Flank: Pain Intensity: 1 Vaginal: Pain Intensity: 1 Transfer of Care Handoff Completed per policy Notes Mental Status: alert / awake / arousable and participated in evaluation Patient Amnestic to Procedure: Yes Nausea / Vomiting: adequately controlled Pain: adequately controlled Airway Patency, RR, SpO2: stable & adequate BP & HR: stable & adequate Hydration State: stable & adequate Anesthetic Complications: no major complications apparent and Pt Satisfied with anesthetic care
[2021-08-24] MEDS: ACETAMINOPHEN 325 MG TAB PO PRN (19:33)
[2021-08-24] MEDS: FAMOTIDINE 20 MG in SYRINGE 3 ML IV SCH (19:34)
[2021-08-24] MEDS: CIPROFLOXACIN / D5W 400 MG/200 ML BAG IV SCH (21:10)
[2021-08-24] MEDS: LACTATED RINGER'S 1,000 ML IV SCH (21:10)
[2021-08-24] MEDS ORDERED: KETOROLAC TROMETHAMINE 15 MG/ML VIAL IV ONE (21:29)
[2021-08-24] MEDS ORDERED: LACTATED RINGER'S 2,000 ML IV ONE (21:30)
[2021-08-25] MEDS ORDERED: LACTATED RINGER'S 1,000 ML IV ONE (00:31)
[2021-08-25] MEDS ORDERED: Nursing to Pharmacy Communication SCH (02:00)
[2021-08-25] MEDS: LACTATED RINGER'S 1,000 ML IV SCH ×4 (02:30→22:51)
[2021-08-25] MEDS: ACETAMINOPHEN 325 MG TAB PO PRN ×5 (03:36→20:53)
[2021-08-25 06:22] LABS: Basophils # (auto) 0.01 K/uL (0-0.2); Basophils % (auto) 0.2 %; Hematocrit (blood only) 33.1 % (37-47); Immature Granulocytes # (auto) 0.01 K/uL (0.00-0.02); Immature Granulocytes % (auto) 0.2 %; Lymphocytes # (auto) 0.73 K/uL (1.2-3.4); Mean Corpuscular Hemoglobin 29.6 pg (25-34); Mean Corpuscular Hgb Conc 33.2 g/dL (32-36); Mean Platelet Volume 10.8 fL (7.4-10.4); Monocytes # (auto) 0.72 K/uL (0.11-0.59); Monocytes % (auto) 10.8 %; Neutrophils # (auto) 5.17 K/uL (1.4-6.5); Neutrophils % (auto) 77.8 %; Platelet Count 168 K/uL (130-400); RDW Coefficient of Variation 14.1 % (11.5-14.5); RDW Standard Deviation 46.3 fL (36.4-46.3); Red Blood Count 3.72 M/uL (4.2-5.4); White Blood Count 6.64 K/uL (4.8-10.8)
[2021-08-25] MEDS: FAMOTIDINE 20 MG in SYRINGE 3 ML IV SCH ×3 (06:23→18:32)
[2021-08-25 06:41] LABS: BUN Creatinine Ratio 5.2 (10-20); Creatinine Clr Calc Pharmacy 163.9 ml/min; Est GFR (African American) 149.5 ml/min; Magnesium 1.5 mg/dl (1.7-2.4); Potassium 3.6 mmol/L (3.5-5.1)
[2021-08-25] MEDS: CIPROFLOXACIN / D5W 400 MG/200 ML BAG IV SCH ×2 (08:16→20:47)
[2021-08-25] MEDS: CETIRIZINE HCL 10 MG TABLET PO SCH (08:16)
[2021-08-25] MEDS: MAGNESIUM SULFATE / D5W 1 GM/100 ML BAG IV SCH ×2 (10:21→10:22)
--- NOTE | 2021-08-25 10:26 | Urology Progress Note ---
Date of Service August 25, 2021 Assessment & Plan (1) Obstruction of left ureteropelvic junction (UPJ) due to stone: (2) Pyelonephritis of left kidney: (3) Sepsis: (4) S/P ureteral stent placement: Plan: 25 yo F admitted for obstructing left ureteral stone and suspected UTI/sepsis syndrome. - Pt POD#1 s/p cystoscopy, left stent insertion with Dr. Choi. - Febrile earlier this AM, lab work reviewed - creatinine 0.58, WBC 6.64. Remains tachycardic. - Tolerating left ureteral stent with minimal bother. - Urine culture prelim gram negative bacilli. Kidney aspirate and blood cultures are pending. - Currently on IV Ciprofloxacin (received a dose of IV Ceftriaxone in ED - had reaction), follow cultures. - Okay to d/c from standpoint when medically stable with appropriate course of PO antibiotics per sensitivities. - Recommend d/c with Tamsulosin, prn Pyridium and prn pain medication for stent management. - Plan for stone treatment after antibiotics completed. - Expected clinical course reviewed, all questions answered. - Will arrange outpatient follow-up with our service for definitive stone management. - Will continue to follow. Admission and Anticipated Discharge Date Admission Date: August 24, 2021 Subjective Patient seen and examined at bedside this AM. Awake, alert and resting in bed. Febrile earlier this AM, Tmax 39.1. Reports feeling sweaty/chills at that time. Subjectively feeling well at present, no fever or chills. Notes mild discomfort in left flank and abdomen, very tolerable. Voiding without difficulty. Notes some frequency. No dysuria. Hematuria clearing post procedure. Review of Systems Constitutional: as per Subjective / HPI Gastrointestinal: as per Subjective / HPI Genitourinary: as per Subjective / HPI Physical Exam Constitutional: well developed and well nourished; no acute distress and not ill appearing Respiratory: normal respiratory effort and able to speak in complete sentences; no respiratory distress and no labored breathing Cardiovascular: Extremities: no pedal edema Gastrointestinal (Abdomen): Inspection/Auscultation: abdomen normal to inspection; abdomen not distended Percussion/Palpation: abdomen soft; abdomen nontender and no guarding Musculoskeletal: Head/Neck/Chest: normocephalic and head atraumatic Skin: no visible skin rashes Neurologic: moves all extremities and awake Psychiatric: Orientation: alert and oriented x 3 Genitourinary: no CVA tenderness Results & Data ([facility]) Vital Signs (Past 12 Hours) Vital Signs Temp Pulse Pulse Resp BP Pulse Ox 08/25/21 09:50 116 H 08/25/21 07:41 37.8 C H 106 H 18 116/80 97 08/25/21 06:23 37.6 C H 08/25/21 05:13 39.1 C H 08/25/21 03:48 38.7 C H 144 H 20 105/60 95 08/24/21 23:47 37 C 112 H 101/64 98 08/24/21 23:23 36.9 C 128 H 16 140/73 99 08/24/21 22:29 36.9 C 111 H 97/63 L 98 PG Care Time/CCT Total # of Minutes Spent Total Time Spent with Patient: Total time spent is greater than 50% in coordination of care (as documented) at patient's floor/unit and/or counseling patient: Coding Level of Care Code 36467 Subseq Hosp Care Lvl 2 Diagnoses Obstruction of left ureteropelvic junction (UPJ) due to stone N20.1 Pyelonephritis of left kidney N12 Sepsis A41.9 S/P ureteral stent placement Z96.0
--- NOTE | 2021-08-25 12:54 | Electrocardiogram Report ---
Test Reason : Blood Pressure : / mmHG Vent. Rate : 159 BPM Atrial Rate : 156 BPM P-R Int : 000 ms QRS Dur : 072 ms QT Int : 314 ms P-R-T Axes : 000 041 054 degrees QTc Int : 510 ms Poor data quality, interpretation may be adversely affected Sinus tachycardia Abnormal ECG No previous ECGs available Confirmed by Ray Galicia ([id number]) on 08/25/2021 12:54:23 PM Referred By: REFERRED SELF Confirmed By:Ray Galicia
--- NOTE | 2021-08-25 14:46 | Hospitalist Progress Note ---
Date of Service August 25, 2021 Assessment & Plan (1) Sepsis syndrome: Plan: 25-year-old with no significant PMHx presented with left flank pain ongoing X 2 days, associated N/V and dysuria. ED work-up reveals evidence of sepsis syndrome and an obstructing left ureteral stone. - SIRS criteria: Leukocytosis of 14K with a left shift, fever of 102.56, and tachycardia of 139. Lactic acid WNL. BP stable - Source:UTI with obstructing stone - Empiric abx: (Cirpo as pt with adverse reaction to Rocephin given in ED) - treatment with aggressive fluid resuscitation and hemodynamically she is improving. Still slightly tachycardic this morning at 104 and very tachycardic with her fever (temp 102 with a heart rate of 144 at 03 100 today) - Antipyretics and antiemetics as needed - Blood culture showing no growth to date but still pending - Urine culture showing 2 different gram-negative bacilli organisms. - Patient is s/p ureteral stent. Appreciate assistance from urology - continue empiric Cipro for now with culture data to help guide and tailor final antibiotic therapy. Continue hospital stay given implementation director fever and tachycardia (2) UTI (urinary tract infection): Plan: - As outlined above, 2 different gram-negative bacilli - Continue Cipro empirically - Antibiotic therapy to be tailored based on final culture data (3) Obstructive uropathy: Plan: - CT revealed 6 mm obstructing stone in the left ureteropelvic junction with left-sided hydronephrosis - s/p cystoscopy with ureteral stent om 08/24 (Dr. Choi) given associated sepsis syndrome-- appreciate assistance - Urology has since signed off and is recommending discharge with appropriate stent/stone management including Flomax and Pyridium. Will need to follow-up for definitive stone management (4) Adverse drug reaction: Plan: - Initially given Rocephin in the ED and subsequently developed hyperemia, increased tachycardia, generalized pruritus and flushing--> treated with IV Jael dryl and symptoms improved - Pepcid on board (for GI prophylaxis) which will also provide histamine blockade in addition to her routine Zyrtec which will be continued - Continue to monitor - Allergy list updated Plan: Full code SCDs and ambulation for DVT prophylaxis Plan of care to be D/W Dr. Ward. Further orders as warranted Admission and Anticipated Discharge Date Admission Date: August 24, 2021 Supervising Physician Co-Signing Physician Notes Attending Attestation - Chart reviewed in detail, care plan d/w PA Chantal Gary. I agree with the rivas components of her documentation. GNR UTI in the setting of a left-sided 6mm UPJ stone. s/p cystoscopy with L ureteral stent placement. Blood cx's thus far neg. Cont cipro IV. Await final urine cx results. Hopefully d/c home tomorrow. Mike Ward MD Subjective Patient seen on daily rounds today. Overall feels well. Claims that she has not "felt this good in several days". She did have a fever spike of 102.3 in the overnight hours (around 3 AM). With this, she was tachycardic at 144 bpm. Currently, her blood cultures are showing no growth to date. Her urine culture is showing gram-negative bacilli (x2 organisms). She seems to be tolerating Cipro without ill effects. She did receive a ureteral stent yesterday and is not having any significant stent discomfort. Nursing voices no complaints or concerns. Review of Systems Review of Systems: All systems reviewed and are unremarkable except as noted in HPI and below Denies fevers, chills, headache, nasal congestion, sore throat, cough, chest pain, shortness of breath, palpitations, orthopnea, PND, abdominal pain, nausea, vomiting, diarrhea, constipation, dysuria, hematuria, frequency, back pain, join t pain or swelling, easy bruising or bleeding, skin lesions or rashes. Physical Exam Physical Exam: General: Resting comfortably in her hospital bed. She does not appear ill or toxic. NAD. HEENT: Head is AT/NC. Buccal mucosa is moist and pink Neck: No JVD. Negative hepatojugular reflex Cardiac: RRR with 2/6 LESLI Lungs: CTA without W/R/R Abdomen: Normoactive X4. Soft and nontender in all quadrants. No CVA tenderness today Extremities: No peripheral clubbing cyanosis or edema Neuro: A&O X4. Cranial nerves II through XII are grossly intact. No focal neuro deficits Skin: No obvious skin lesions or rashes Psych: Appropriate affect. Pleasant and cooperative Results & Data Results & Data ([facility]) Vital Signs (Past 12 Hours) Vital Signs Temp Pulse Pulse Resp BP Pulse Ox 08/25/21 12:20 36.7 C 104 H 18 115/81 100 08/25/21 09:50 116 H 08/25/21 07:41 37.8 C H 106 H 18 116/80 97 08/25/21 06:23 37.6 C H 08/25/21 05:13 39.1 C H 08/25/21 03:48 38.7 C H 144 H 20 105/60 95 Laboratory Results 08/25/21 06:00 08/25/21 06:00 Gram Stain Final 08/24/21-1746 Gram Stain Result Few WBCs Seen No Organisms Seen Aero/Sayda Cult Preliminary 08/25/21-1420 Organism 1 Gram negative bacilli Quantity Few Sens Sensitivities to Follow Organism 2 Gram negative bacilli#2 Quantity Few Sens Sensitivities to Follow PG Care Time/CCT Total # of Minutes Spent Total Time Spent with Patient: Total time spent is greater than 50% in coordination of care (as documented) at patient's floor/unit and/or counseling patient: Coding Level of Care Code 81921 Subseq Hosp Care Lvl 2 Diagnoses Sepsis syndrome Obstructive uropathy N13.9 Adverse drug reaction [id number] UTI (urinary tract infection) N39.0
[2021-08-25] MEDS ORDERED: LORazepam 0.5 MG TAB PO PRN (18:07)
[2021-08-25] MEDS: MAGNESIUM OXIDE 400 MG TAB PO SCH (20:46)
[2021-08-26] MEDS: LACTATED RINGER'S 1,000 ML IV SCH ×2 (05:53→09:49)
[2021-08-26] MEDS: FAMOTIDINE 20 MG in SYRINGE 3 ML IV SCH (05:54)
[2021-08-26] MEDS: ACETAMINOPHEN 325 MG TAB PO PRN (05:56)
[2021-08-26 06:05] LABS: Anion Gap 6 (3-11); BUN Creatinine Ratio 6.8 (10-20); Blood Urea Nitrogen 3 mg/dl (6-23); Calcium 8.8 mg/dl (8.5-10.1); Carbon Dioxide 25 mmol/L (21-32); Chloride 107 mmol/L (98-107); Creatinine Clr Calc Pharmacy 208.9 ml/min; Est GFR (African American) > 150.0 ml/min; Est GFR (Non-African American) 141.3 ml/min; Glucose 102 mg/dl (70-99(Fasting)); Magnesium 1.6 mg/dl (1.7-2.4); Sodium 138 mmol/L (136-145)
[2021-08-26 06:21] LABS: Basophils # (auto) 0.02 K/uL (0-0.2); Basophils % (auto) 0.3 %; Eosinophils # (auto) 0.06 K/uL (0-0.5); Hematocrit (blood only) 34.8 % (37-47); Hemoglobin 11.4 g/dL (12.0-16.0); Immature Granulocytes # (auto) 0.01 K/uL (0.00-0.02); Immature Granulocytes % (auto) 0.2 %; Lymphocytes # (auto) 1.05 K/uL (1.2-3.4); Lymphocytes % (auto) 17.8 %; Mean Corpuscular Hemoglobin 29.2 pg (25-34); Mean Corpuscular Hgb Conc 32.8 g/dL (32-36); Mean Platelet Volume 10.9 fL (7.4-10.4); Monocytes # (auto) 0.88 K/uL (0.11-0.59); Monocytes % (auto) 14.9 %; Neutrophils # (auto) 3.88 K/uL (1.4-6.5); Neutrophils % (auto) 65.8 %; Platelet Count 196 K/uL (130-400); RBC Morphology Unremarkable; RDW Coefficient of Variation 14.1 % (11.5-14.5); Red Blood Count 3.91 M/uL (4.2-5.4)
[2021-08-26] MEDS: MAGNESIUM OXIDE 400 MG TAB PO SCH (07:37)
[2021-08-26] MEDS: CETIRIZINE HCL 10 MG TABLET PO SCH (07:37)
[2021-08-26] MEDS: CIPROFLOXACIN / D5W 400 MG/200 ML BAG IV SCH (07:37)
--- NOTE | 2021-08-26 08:38 | Urology Progress Note ---
Date of Service August 26, 2021 Assessment & Plan (1) Obstructive uropathy: (2) Sepsis syndrome: (3) S/P ureteral stent placement: Plan: 25 yo F admitted for obstructing left ureteral stone and suspected UTI/sepsis syndrome. - Pt POD#2 s/p cystoscopy, left stent insertion with Dr. Choi. - Afebrile, labs reviewed - Wbc 5.90, Creatinine 0.44. - Pt feeling well today, tolerating the ureteral stent with minimal bother. - Urine culture prelim pansensitive E.coli. Kidney aspirate prelim gram negative bacilli. Blood cultures no growth x 24 hours. - Currently on IV Ciprofloxacin (received a dose of IV Ceftriaxone in ED - had reaction), follow cultures. - Okay to d/c from standpoint when medically stable with appropriate course of PO antibiotics per sensitivities. - Recommend d/c with Tamsulosin, prn Pyridium and prn pain medication for stent management. - Plan for stone treatment after infection has resolved. - Expected clinical course reviewed, all questions answered. - Will arrange outpatient follow-up with our service for definitive stone man agement. - will sign-off, please contact us with any further questions or concerns. Admission and Anticipated Discharge Date Admission Date: August 24, 2021 Supervising Physician Co-Signing Physician Notes I have discussed Ms. Tang's case with JORGE Allan and agree with the above documentation. Subjective Pt examined at bedside this AM. Awake, resting in bed on arrival. No acute distress. Overall feeling well. No fevers overnight. Tolerating the stent with minimal bother. Voiding without issue. Some mild intermittent hematuria/dysuria. No nausea or vomiting. Review of Systems Constitutional: as per Subjective / HPI Gastrointestinal: as per Subjective / HPI Genitourinary: as per Subjective / HPI Physical Exam Constitutional: well developed and well nourished; no acute distress and not ill appearing Respiratory: normal respiratory effort and able to speak in complete sentences; no respiratory distress and no labored breathing Gastrointestinal (Abdomen): Inspection/Auscultation: abdomen normal to inspection Skin: no visible skin rashes Neurologic: moves all extremities and awake Psychiatric: Orientation: alert and oriented x 3 Results & Data ([facility]) Vital Signs (Past 12 Hours) Vital Signs Temp Pulse Pulse Resp BP Pulse Ox 08/26/21 07:33 37.0 C 101 H 19 113/72 94 08/26/21 03:25 37.1 C 111 H 17 122/81 98 08/25/21 23:03 37.3 C 109 H 18 130/86 98 08/25/21 22:19 93 H PG Care Time/CCT Total # of Minutes Spent Total Time Spent with Patient: Total time spent is greater than 50% in coordination of care (as documented) at patient's floor/unit and/or counseling patient: Coding Level of Care Code 38766 Subseq Hosp Care Lvl 2 Diagnoses Sepsis syndrome Obstructive uropathy N13.9 S/P ureteral stent placement Z96.0
[2021-08-26] MEDS ORDERED: MAGNESIUM SULFATE / D5W 1 GM/100 ML BAG IV ONE (12:30)
--- NOTE | 2021-08-26 13:12 | Discharge Summary ---
Date of Service August 26, 2021 Admission HPI Per Admitting Provider Mrs. Tang is a 25 y/o WF with no significant PMHx who presented to the ED c/o Left sided flank pain. Started in Left lower back with radiation around to the front. Constant and described as sharp/stabbing. Worse when lifting left leg. 10 out of 10 at its worst. Has associated subjective fevers, chills, nausea and vomiting. In addition, dysuria noted. No hematuria or frequency. Presented to the ED where she was initially found to be hemodynamically stable and afebrile. White blood cell count elevated at 14K and urine is leukocyte esterase positive. CT scan shows a 6 mm stone in the left ureteropelvic j unction with left-sided hydronephrosis. Initially treated with IV fluids and 1 dose of IV Rocephin with plan to discharged home for outpatient urologic care; however, she has since become tachycardic (140s), and has spiked a fever of 102.56. Urology notified and plan is to take her to the operating room today for intervention/stent. Principal Diagnosis 1. Sepsis syndrome 2. Urinary tract infectionpansensitive E. coli 3. Obstructive uropathys/p ureteral stent placement 4. Adverse drug reactionRocephin Discharge Exam General: Resting comfortably in her hospital bed. She does not appear ill or toxic. NAD. HEENT: Head is AT/NC. Buccal mucosa is moist and pink Neck: No JVD. Negative hepatojugular reflex Cardiac: RRR with 1/6 to 2/6 LESLI Lungs: CTA without W/R/R Abdomen: Normoactive X4. Soft and nontender in all quadrants. No CVA tenderness Extremities: No peripheral clubbing cyanosis or edema Neuro: A&O X4. Cranial nerves II through XII are grossly intact. No focal neuro deficits Skin: No obvious skin lesions or rashes Psych: Appropriate affect. Pleasant and cooperative Discharge Data Allergies Allergy/AdvReac Type Severity Reaction Status Date / Time ceftriaxone [From Rocephin] AdvReac tachycardia, Verified 08/24/21 15:36 flushing, hyperemia Consultations 08/24/21 14:30 ED Decision to Admit Stat 08/24/21 18:24 Consult Urology Routine Procedures Performed Operation Date: 08/24/21 18:35 Actual Procedures p Cystoscopy, left renal aspiration, left Retrograde Pyelogram, Left Ureteral Stent Placement(Left) - Sukumar Choi, DO Ordered Studies 08/24/21 09:29 CT of the abdomen and pelvis: IMPRESSION: 6 mm left ureteropelvic junction calculus which results in mild left hydronephrosis with delayed nephrogram. 08/24/21 15:39 FL retrograde includes kub Routine Hospital Course (1) Sepsis syndrome: 25-year-old with no significant PMHx presented with left flank pain ongoing X 2 days, associated N/V and dysuria. ED work-up reveals evidence of sepsis syndrome and an obstructing left ureteral stone. - SIRS criteria: Leukocytosis of 14K with a left shift, fever of 102.56, and tachycardia of 139. Lactic acid WNL. BP stable - Source: UTI with obstructing stone - Empiric abx: (Cipro as pt with adverse reaction to Rocephin given in ED) - Aggressive fluid resuscitation given - Antipyretics and antiemetics as needed - Overall, sepsis syndrome resolved. Patient has since defervesced and remained afebrile X> 24 hours, white blood cell count has normalized, heart rate and BP stable (2) UTI (urinary tract infection): - Pansensitive E. coli. Complete full course of Cipro (through 09/07) for complicated UTI with associated sepsis syndrome - Blood culture showing no growth (3) Obstructive uropathy: - CT revealed 6 mm obstructing stone in the left ureteropelvic junction with left-sided hydronephrosis - s/p cystoscopy with ureteral stent on 08/24 (Dr. Choi) given associated sepsis syndrome-- appreciate assistance - Urology has since signed off and is recommending discharge with appropriate stent/stone management including Flomax and Pyridium. Will need to follow-up for definitive stone management (4) Adverse drug reaction: - Initially given Rocephin in the ED and subsequently developed hyperemia, increased tachycardia, generalized pruritus and flushing--> treated with IV Benadryl and symptoms improved - Pepcid on board (for GI prophylaxis) which will also provide histamine blockade in addition to her routine Zyrtec which will be continued - no subsequent issues - Allergy list updated (5) Hypomagnesemia: - Supplement with IV magnesium prior to discharge today - Continue oral magnesium (which will also help with her IBS-C) (6) IBS (irritable bowel syndrome): - chronic Full code SCDs and ambulation for DVT prophylaxis Plan of care d/w D/W Dr. Ward. Total Time Total Time Spent Total Time Spent (In Minutes): 35 Discharge Plan Discharge Items Patient Disposition: Home - Self-Care Reason For Visit: SEPSIS SYNDROME, OBSTRUCTING UROPATHY Discharge Diagnosis: 1. Sepsis Syndrome (elevated heart rate, fever, elevated white blood cell count)-- due to infection 2. Urinary Tract Infection ("UTI") 3. Kidney Stone- s/p stent insertion Activity: Resume your previous activity Non-emergency contact: Primary Care Provider and Urologist Call non-emergency contact if: you have any medication questions, your pain is not controlled and you have a fever Follow-up/Referrals: Sukumar Choi DO [Physician] - Damian Lawrence [Primary Care Provider] - 09/02/21 11:15 am (Please follow up with Dr. Lawrence on Tuesday09/02/21 at 11:15 am. Please arrive to the office at 11:00 am for your appointment. If you are unable to keep this appointment, please call the office to reschedule at [phone]. ) Diet: Regular Addtl Attending Provider Instructions: You were found to have a kidney stone which was the cause of your pain. The stone was 6 mm and causing obstruction. In addition, you were found to have a urinary tract infection and given the obstruction from the stone, this caused sepsis syndrome. This caused your elevated heart rate, your fever, and the elevation in your white blood cell count. You had a procedure on 08/24 called a cystoscopy with ureteral stent insertion. This involved placing a stent in the ureter to allow dilation of the ureter and subsequent passage of the stone. You may have discomfort with movement and passage of the stone. The stent is not permanent but will be removed in the near future. You need to follow-up with urology to determine if subsequent stone treatment is needed (lithotripsy) Sometimes shockwaves will be used to break up the stone to allow for easier passage of the stone; however, you may pass this sized stone on your own with the stent insertion. You need to remain on antibiotics to help treat the active infection before lithotripsy can be used. The antibiotic you are being discharged with is called Cipro and is to be taken twice daily for a total of 2 weeks (Last dose on 09/07). While in the emergency department, you did receive 1 dose of IV Rocephin (cef triaxone) and had an adverse reaction. I would avoid this medication or similar cephalosporins in the future given risk for allergic reaction. In addition to the antibiotic, you are being discharged on Flomax (which will help relax the bladder and subsequently help with passage of urine) and Pyridium (which is a bladder anesthetic to help ease the pain/discomfort from the stent). Pyridium will make your urine bright orange. Do not be alarmed as this is normal. Last, you were found to have a low magnesium level while in house. This is comm on in most people especially those that are sick. Most of us do not get enough magnesium rich foods in our diet. You were treated with IV magnesium and are being discharged on oral magnesium. Take this daily for a minimum of 14 days but could consider long-term as this will also help with the constipation you have from your IBS. You may return to work on Tuesday as scheduled without restrictions. Be sure to return back to the emergency department should you develop increased pain or a fever >/= 100.4 F Follow-up with urology. Their office should be notifying you with an appointment date/time; however, if you do not hear from someone regarding an appointment date and time before Tuesday, please call [phone] Follow-up with your PCP within 7 to 10 days Return to the emergency department for new or worsening symptoms Pending Studies at Discharge: Yes Studies:: final blood cultures but no growth to date Stand-Alone Forms: My [facility] [employer], Work/School Release, Smoking Cessation Medications and DC Order Prescriptions: New ciprofloxacin HCl 500 mg Tablet 500 mg PO BID Qty: 25 RF: 0 magnesium oxide 400 mg (241.3 mg magnesium) Tablet 400 mg PO DAILY Qty: 30 RF: 0 tamsulosin [Flomax] 0.4 mg capsule 0.4 mg PO DAILY Qty: 30 RF: 0 phenazopyridine [Pyridium] 100 mg tablet 100 mg PO Q8H PRN (Reason: stent pain) Qty: 20 RF: 0 Continued lactase [Lactaid] 3,000 unit Tablet 3,000 unit PO AC PRN (Reason: Lactose Intolerance) RF: 0 docusate sodium [Colace] 100 mg Capsule 100 mg PO DAILY RF: 0 cholecalciferol (vitamin D3) [Vitamin D3] 25 mcg (1,000 unit) Tablet 25 mcg PO DAILY RF: 0 Zyrtec 10 mg Capsule 10 mg PO DAILY RF: 0 Discharge Orders: Discharge Order (Routine); Ordered 08/26/21 Ordered By: Chantal Morfin/Other Patient Handouts: Kidney Stone (Urine), Having a Ureteral Stent, ED Urine Strainer Admission Data Admit Date/Time: 08/24/21 15:17 Attending Provider: Mike Ward Admit Provider: Yasir Guaman Primary Care Provider: Damian Lawrence Other Providers: Sukumar Choi ; Yasir Guaman Other Interventions: Discharge Summary Assessment (RN) Last Done: 08/26/21 13:16 Supervising Physician Co-Signing Physician Notes Attending Attestation & Discharge Note: Pt seen/examined, chart reviewed, care plan d/w PA Chantal Gary. I agree with the rivas components of her documentation. 25yo female who presented with a 6mm obstructing left-sided kidney stone at the [facility]. Complicated by sepsis due to e.coli UTI. Blood cultures did remain negative. Underwent cystoscopy with ureteral stent placement by [facility] U[facility], Dr Choi. Post-cystoscopy the patient did well from medical/urological standpoint. She will complete a course of PO cipro post-discharge. f/u with [facility] urology as outpatient for stent & stone management. Discharge exam: gen - NAD mouth - MMM heart - RRR, s1 s2, no murmur lungs - CTA b/l abd - soft NT ND BS no flank tenderness ext - no edema, pulses 2+ b/l Mike Ward MD Coding Level of Care Code D/C DAY MANAGEMENT >30 MINS Diagnoses Sepsis syndrome UTI (urinary tract infection) N39.0 Obstructive uropathy N13.9 Adverse drug reaction T50.905A Hypomagnesemia E83.42 IBS (irritable bowel syndrome) K58.9
[2021-08-26] MEDS ORDERED: CIPROFLOXACIN 500 MG TAB PO SCH (21:00)
== END 2021-08-26 14:07 | disposition home or self-care (01) | DRG 854 ==
LOC: ED 09:03 → OR 15:55 → SUATTDRO 15:56 → 2S 15:56

== ENCOUNTER 2023-07-24 01:59 | Inpatient (IN) ==
[2023-07-24] MEDS ORDERED: LIDOCAINE 1% LOCAL 20 ML VIAL INFIL PRN (03:29)
[2023-07-24] MEDS ORDERED: OXYTOCIN 30 UNITS/NSS 30 UNITS/500 ML BAG IV PRN ×3 (03:29→10:41)
--- NOTE | 2023-07-24 03:35 | History & Physical Report ---
Date of Service July 24, 2023 Assessment & Plan (1) 37 weeks gestation of : (2) PROM (premature rupture of membranes): Plan admit ,iv,labs. given prom, start pitocin, pt and partner agree, fhts categ 1. History of Present Illness Chief Complaint: PROM clear fluid Primary Care Provider: Tessy Baker 27yo at 37w3d ega presents to L&D with above cc. Clear fluid leaking on 07/24/22. Few ctx, no pain. No vb. +FM. PNC c/b 1. GDM--> last u/s ac 83%, efw 67%. PNL rh pos, ri, gbs neg OBH: x 1 GYNH: nl paps, no stds. Allergies Allergy/AdvReac Type Severity Reaction Status Date / Time Cephalosporins Allergy Intermediate Tachycardia Verified 07/22/23 12:21 nickel Allergy Redness of Verified 07/22/23 12:21 Skin ceftriaxone [From Rocephin] AdvReac tachycardia, Verified 07/22/23 12:21 flushing, hyperemia Home Medications Medication Instructions Recorded Confirmed Type cetirizine 10 mg capsule (Zyrtec) 10 mg PO QAM 02/24/21 07/22/23 History cholecalciferol (vitamin D3) 25 25 mcg PO QAM 08/24/21 07/22/23 History mcg (1,000 unit) tablet (Vitamin D3) magnesium oxide 400 mg (241.3 mg 400 mg PO QAM 09/14/21 07/22/23 History magnesium) tablet vit 168-iron 27 mg-folic cap PO 12/24/22 07/22/23 History acid 800 mcg-omega3 235 mg capsule (One-A-Day -1) lorazepam 0.5 mg tablet 0.25 mg PO BID PRN 12/31/22 07/22/23 History sertraline [Zoloft] 100 mg PO 12/31/22 07/22/23 History acetone (urine) test (Ketone Urine #50 ea 02/25/23 07/22/23 Rx Test strips) Dexcom G7 Sensor (blood-glucose #3 ea 03/01/23 07/22/23 Rx sensor) omeprazole [Prilosec] PO 06/07/23 07/22/23 History Patient History Medical History 40 weeks gestation of Anxiety Diarrhea Encounter for induction of labor Enlarged thyroid gland Gestational diabetes History of COVID-19 History of gestational diabetes IBS (irritable bowel syndrome) Kidney stones Panic disorder Vaginal delivery Surgical History History of cholecystectomy History of cystoscopy History of open reduction and internal fixation (ORIF) procedure History of ureter stent History of wisdom tooth extraction Family History (Updated 12/24/22 @ 13:17 by Yvette Adam) Grandfather (Maternal) Family history of diabetes mellitus Diabetes Aunt Family hx of colon cancer Grandmother (Maternal) Ovarian cancer great grandmother Other No family history of adverse response to anesthesia Denies family history of Breast cancer Colorectal cancer Social History (Updated 12/24/22 @ 13:17 by Yvette Adam) Smoking Status: Never smoker Second Hand Exposure: No; Do You Dip or Chew Tobacco: No; Hx Alcohol Use: No Hx Substance Use: No Preferred Language: Panamanian Communication Ability: Effective Visual Impairment: No Limitations Clinic Scheduler Required: No Beliefs That Will Affect Care: None marital status: marital status details: Kyle (23) [phone] Current Living Situation: Family Current Living Situation Comment: and son. current occupational status: employed current occupation: RN @ [employer] Other Information That Helps Us Care for You: No Feels Safe at Home: Yes Safety Concerns: Feels Safe At This Time Assistive Devices: None Review of Systems as per Subjective / HPI Physical Exam Constitutional: WD/WN, vitals as above Respiratory: normal respiratory effort, lungs clear to auscultation Cardiovascular: Rate/Rhythm: regular rate and regular rhythm Gastrointestinal (Abdomen): soft gravid nt efw 7-8# Musculoskeletal: no edema nontender calves Neurologic: grossly normal Psychiatric: A+Ox3, euthymic affect Genitourinary: Manual OB Exam: + cervical dilation (per nurse) 3 cm and + amniotic fluid (SSE +pooling) clear, nitrazine positive and ferning present OB Exam Monitor Tracing: + external FHT monitor used, + external uterine monitor used (irreg), + category I and + normal FHT variability Results & Data Vital Signs (Past 12 Hours) Vital Signs Temp Pulse Resp BP 07/24/23 02:24 97.9 F 16 07/24/23 02:19 116 H 127/66 07/24/23 02:15 16 07/24/23 02:15 97.9 F 16 Coding Level of Care Code None Diagnoses 37 weeks gestation of Z3A.37 PROM (premature rupture of membranes) O42.90
[2023-07-24 04:21] LABS: Hematocrit (blood only) 33.8 % (37.0-47.0); Hemoglobin 11.2 g/dl (12.0-16.0); Mean Corpuscular Hemoglobin 29.2 pg (25.0-34.0); Mean Corpuscular Hgb Conc 33.1 g/dL (32.0-36.0); Mean Platelet Volume 12.1 fL (9.4-12.4); Platelet Count 156 K/uL (130-400); RDW Standard Deviation 44.7 fL (36.4-46.3); Red Blood Count 3.84 M/uL (4.20-5.40)
[2023-07-24] MEDS: LACTATED RINGER'S 1,000 ML IV PRN ×2 (04:23→06:25)
[2023-07-24] MEDS ORDERED: fentaNYL citrate PF 100 MCG/2 ML VIAL ONE (04:33)
[2023-07-24] MEDS ORDERED: ePHEDrine sulfate 50 MG/ML AMP ONE (04:33)
[2023-07-24] MEDS ORDERED: BUPIVACAINE 0.25% PF 30 ML VIAL ONE (04:34)
[2023-07-24] MEDS ORDERED: fentANYL 2 MCG/ML BUPIVacaine 0.125%-NSS 100ML BAG ONE (04:34)
[2023-07-24] MEDS ORDERED: LIDOCAINE 2%/EPINEPHRINE 1:200,000 20 ML PF ONE (04:34)
[2023-07-24] MEDS ORDERED: SODIUM CHLORIDE 0.9% PF INJ 10 ML VIAL ONE (04:34)
[2023-07-24] MEDS ORDERED: fentaNYL citrate PF 100 MCG/2 ML VIAL EPI STA (05:19)
[2023-07-24] MEDS ORDERED: NALBUPHINE HCL 5 MG in SYRINGE 0 ML IV PRN (05:19)
[2023-07-24] MEDS ORDERED: BUPIVACAINE 0.25% PF 30 ML VIAL EPI PRN (05:19)
[2023-07-24] MEDS ORDERED: ROPIVACAINE 0.5% PF 5 MG/ML 20 ML VIAL EPI PRN (05:19)
[2023-07-24] MEDS ORDERED: NALOXONE HCL 1 MG in SODIUM CHLORIDE 0.9% 1,000 ML IV PRN (05:19)
[2023-07-24] MEDS ORDERED: fentaNYL citrate PF 100 MCG/2 ML VIAL EPI PRN (05:19)
[2023-07-24] MEDS ORDERED: LIDOCAINE 2% MPF LOCAL 5 ML VIAL EPI PRN (05:19)
[2023-07-24] MEDS ORDERED: NALOXONE HCL 0.4 MG/1 ML VIAL/CARP IV PRN (05:19)
[2023-07-24] MEDS ORDERED: fentANYL 2 MCG/ML BUPIVacaine 0.125%-NSS 100ML BAG EPI PRN (05:19)
[2023-07-24] MEDS ORDERED: SODIUM CHLORIDE 0.9% PF INJ 10 ML VIAL EPI STA (05:19)
[2023-07-24] MEDS ORDERED: diphenhydrAMINE 50 MG/ML VIAL IV PRN (05:19)
[2023-07-24] MEDS ORDERED: ONDANSETRON INJ 2 MG/ML 2 ML VIAL IV PRN (05:19)
[2023-07-24] MEDS ORDERED: LIDOCAINE 2%/EPINEPHRINE 1:200,000 20 ML PF EPI STA (05:19)
[2023-07-24] MEDS ORDERED: BUPIVACAINE 0.25% PF 30 ML VIAL EPI STA (05:19)
[2023-07-24] MEDS ORDERED: SODIUM CHLORIDE 0.9% PF INJ 10 ML VIAL EPI PRN (05:19)
[2023-07-24] MEDS ORDERED: ePHEDrine sulfate 50 MG/ML AMP IV PRN (05:19)
--- NOTE | 2023-07-24 05:20 | Anesthesiology Consultation ---
Date of Service July 24, 2023 Assessment & Plan ASA ASA2 Proposed Anesthesia Anesthesia Type: Labor Epidural Risk / Benefits Reviewed With: PT / POA / Parent / Guardian, Accepts Plan and Informed Consent Obtained History Height/Weight Height: 5 ft 3 in Weight: 101.605 kg Allergies Allergy/AdvReac Type Severity Reaction Status Date / Time Cephalosporins Allergy Intermediate Tachycardia Verified 07/22/23 12:21 nickel Allergy Redness of Verified 07/22/23 12:21 Skin ceftriaxone [From Rocephin] AdvReac tachycardia, Verified 07/22/23 12:21 flushing, hyperemia Medications Home Medications Medication Instructions Recorded Confirmed Last Taken cetirizine 10 mg capsule (Zyrtec) 10 mg PO QAM 02/24/21 07/24/23 1 Day Ago ~07/23/23 cholecalciferol (vitamin D3) 25 25 mcg PO QAM 08/24/21 07/24/23 1 Day Ago mcg (1,000 unit) tablet (Vitamin ~07/23/23 D3) magnesium oxide 400 mg (241.3 mg 400 mg PO QAM 09/14/21 07/24/23 1 Day Ago magnesium) tablet ~07/23/23 vit 168-iron 27 mg-folic cap PO 12/24/22 07/22/23 1 Day Ago acid 800 mcg-omega3 235 mg capsule ~07/23/23 (One-A-Day -1) lorazepam 0.5 mg tablet 0.25 mg PO BID PRN Anxiety 12/31/22 07/24/23 1 Year Ago ~07/24/22 sertraline [Zoloft] 100 mg PO 12/31/22 07/22/23 07/23/23 08:00 acetone (urine) test (Ketone Urine #50 ea 02/25/23 07/22/23 Unknown Test strips) Dexcom G7 Sensor (blood-glucose #3 ea 03/01/23 07/22/23 Unknown sensor) omeprazole [Prilosec] PO 06/07/23 07/22/23 3 Days Ago ~07/21/23 Active Medications Generic Name Dose Route Start Last Admin Trade Name Freq PRN Reason Stop Dose Admin Oxytocin 30 units in 500 mls @ 1 mls/hr 07/24/23 03:29 07/24/23 04:25 Pitocin 30 Units/Nss IV 07/26/23 03:28 0.06 units/hr .Q24H PRN 1 mls/hr Labor Induction/Augmentation Administration Protocol 0.06 UNITS/HR Lactated Ringer's 1,000 mls @ 125 mls/hr 07/24/23 03:29 07/24/23 04:57 Lr IV 07/26/23 03:28 125 mls/hr .Q8H PRN Infusion L&D Protocol Protocol Past Medical History Medical History History of COVID-19 06/2020; loss of taste/smell, headache, fatigue, nausea; resolved. Kidney stones History of gestational diabetes IBS (irritable bowel syndrome) Vaginal delivery Encounter for induction of labor 40 weeks gestation of Gestational diabetes Diarrhea Enlarged thyroid gland Panic disorder Anxiety Exercise / Class Metabolic Activity II 4-5 Yardwork/Stairs/Walk up hill Past Family History Family History Grandfather (Maternal) Family history of diabetes mellitus Diabetes Aunt Family hx of colon cancer Grandmother (Maternal) Ovarian cancer great grandmother Other No family history of adverse response to anesthesia Denies family history of Breast cancer Colorectal cancer Past Surgical History Surgical History History of cystoscopy History of ureter stent History of open reduction and internal fixation (ORIF) procedure right foot fx--no hardware History of cholecystectomy History of wisdom tooth extraction Past Anesthesia History No Hx of Anesthesia Complications and No Family Hx of Anesthesia Complications History of PONV No Hx of PONV and No Hx of Motion Sickness Social History Smoking Status: Never smoker Do You Dip or Chew Tobacco: No Hx Alcohol Use: No Alcohol type: beer, wine and hard liquor alcohol intake frequency: holidays/special occasions only Hx Substance Use: No substance use type: does not use Review of Systems denies fever/cough/ colds/ chest pain/ SOB/ CHRISTIANO denies CHRISTIANO Physical Exam Vital Signs Last Vital Signs Temp 36.4 C L 07/24/23 04:00 Pulse 96 H 07/24/23 05:16 Resp 16 07/24/23 02:24 BP 127/66 07/24/23 02:19 Pulse Ox 96 07/24/23 05:16 ENMT Mouth: no TMJ abnormality and no dentition abnormality Thyromental Distance: > or= 3.5 Finger Breadths Mallampati Class: II Neck neck extension not limited Respiratory normal respiratory effort; no respiratory distress Auscultation: lungs clear to auscultation bilaterally Cardiovascular Rate/Rhythm: regular rate and regular rhythm Neurologic moves all extremities Psychiatric Orientation: alert and oriented x 3 Testing Laboratory Results 07/24/23 03:37 07/24/23 03:54 POC Glucose 103 H
--- NOTE | 2023-07-24 10:11 | Delivery Summary ---
Vaginal Delivery Summary Date of Service July 24, 2023 Vaginal Delivery Summary The patient dilated to complete and pushed to deliver a viable male infant Apgars 8 and 9 via over intact perineum. Shoulders and body delivered with ease. Infant was vigorous and crying at . Mouth and nose bulb suctioned. Cord clamped at 50 seconds of life and infant to maternal abdomen where the cord was then doubly clamped and cut. Placenta delivered spontaneously and intact, three-vessel cord. Hemostasis achieved with dilute pitocin and uterine massage and drainage of the bladder for approximately 300 cc under sterile conditions. Cervix and sulci intact. EBL 300 cc. Mother and baby stable in recovery. [facility] Vaginal Delivery Charge Delivery Type Details:
[2023-07-24] MEDS ORDERED: ACETAMINOPHEN 325 MG TAB PO PRN (10:41)
[2023-07-24] MEDS ORDERED: HYDROCORTISONE ACETATE 25 MG SUPP PR PRN (10:41)
[2023-07-24] MEDS ORDERED: bisacodyL 10 MG SUPP PR PRN (10:41)
[2023-07-24] MEDS ORDERED: oxyCODONE/ACETAMINOPHEN 5mg/325mg TAB PO PRN (10:41)
[2023-07-24] MEDS ORDERED: OXYTOCIN 20 UNITS/LR 1,002 ML IV SCH (10:41)
[2023-07-24] MEDS ORDERED: DIPHTHER/TETAN/PERTUS Vaccine (Tdap, Adol/Adult) 0.5mL IM ONE (10:41)
[2023-07-24] MEDS ORDERED: BENZOCAINE 20% SPRY 85 APPLN/85 GM CAN EXT PRN (10:41)
--- NOTE | 2023-07-24 10:54 | Anesthesia Procedure Note ---
Date of Service July 24, 2023 Anesthesia Post Epidural Note Vital Signs Vital Signs: Temp Pulse Resp BP Pulse Ox O2 Del Method 98.4 F 99 H 18 118/57 L 100 Room Air 07/24/23 09:06 07/24/23 10:35 07/24/23 09:06 07/24/23 10:35 07/24/23 09:51 07/24/23 07:23 Notes Mental Status: alert / awake / arousable and participated in evaluation Nausea / Vomiting: adequately controlled Pain: adequately controlled Airway Patency, RR, SpO2: stable & adequate BP & HR: stable & adequate Hydration State: stable & adequate Neuraxial Anesthesia: was administered and sensory block is resolving Anesthetic Complications: no major complications apparent and Pt Satisfied with anesthetic care Epidural: Removed without complications and With tip intact
[2023-07-24] MEDS ORDERED: OXYTOCIN 20 UNITS/1002ML LR IV ONE (11:33)
[2023-07-24] MEDS: CETIRIZINE HCL 10 MG TABLET PO SCH (14:19)
[2023-07-24] MEDS: SERTRALINE HCL 100 MG TABLET PO SCH (14:19)
[2023-07-24] MEDS: IBUPROFEN 600 MG TAB PO PRN ×2 (15:21→20:18)
[2023-07-24] MEDS: DOCUSATE SODIUM 100 MG CAP PO SCH (20:19)
--- NOTE | 2023-07-25 06:21 | Obstetrical Progress Note ---
Date of Service <Minniemallorie Nuñez DO - Last Filed: 07/25/23 06:27> July 25, 2023 Assessment & Plan <Minniemallorie Nuñez DO - Last Filed: 07/25/23 06:27> (1) care following vaginal delivery: (2) PROM (premature rupture of membranes): (3) Gestational diabetes: Plan Feels well today. Eating well, voiding well, ambulating well. Pain well controlled with ibuprofen only. Routine care; OOB, ambulation, continue regular diet. Anticipate discharge 24-48 hours after , likely today or tomorrow. After discharge will have 6 week follow-up with Dr. Bethea. <Kristy Bethea MD, FACOG - Last Filed: 07/25/23 07:07> (1) care following vaginal delivery: (2) PROM (premature rupture of membranes): (3) Gestational diabetes: Subjective <Minnie Nuñez DO - Last Filed: 07/25/23 06:27> Pt is a 27 y/o female who is PPD#1 following at 37 3/7 weeks. complicated by GDM. Delivery complicated only by PROM. Pt states that today she is feeling really good. She states her cramping has basically subsided and she has only a small amount of persistent lochia. She is ambulating, voiding, and tolerating oral intake appropriately. She is bottle feeding and pumping and states thta baby has been feeding well. No questions or complaints at this time, was hoping to go home today. Constitutional: no fever, no chills or no sweats Respiratory: no dyspnea Cardiovascular: no chest pain or no palpitations Genitourinary (female): no dysuria Neurologic: no headache(s) no changes in vision, no headaches Physical Exam <Minnie Nuñez DO - Last Filed: 07/25/23 06:27> General: Alert, oriented. No acute distress. Cardiac: Regular rate and rhythm, no murmurs, rubs, or gallops. Respiratory: Clear to auscultation bilaterally, no wheezes/rales/rhonchi. No increased work of breathing. Symmetrical chest rise. No respiratory distress. Abdomen: Soft, nontender, nondistended. Bowel sounds present. Uterus: Uterine fundus firm, palpable 3 cm below the umbilicus. Lower extremities: No lower extremity edema or swelling. No deep calf pain. Results & Data <Minnie Nuñez DO - Last Filed: 07/25/23 06:27> Vital Signs (Past 12 Hours) Vital Signs Temp Pulse Resp BP Pulse Ox O2 Del Method 07/25/23 03:10 36.6 C 76 18 124/82 98 Room Air 07/24/23 23:02 36.7 C 79 18 108/72 97 Room Air 07/24/23 19:30 36.7 C 86 17 117/79 98 Room Air 07/24/23 18:56 36.9 C 79 18 111/75 97 Room Air Supervising Physician <Kristy Bethea MD, FACOG - Last Filed: 07/25/23 07:07> Co-Signing Physician Notes Resident Physician Supervision Note: I was present with Dr. Nuñez during the history and exam. I discussed the case with the resident and agree with the findings and plan as documented in the note. Any exceptions or clarifications are listed here: pt doing well, ready to go home, breast feeding. rh pos. ri. abd soft ff 2 down nt, ext nt calves. instructions reviewed. f/u 6wk pp check. Documented By: Kristy Bethea MD, FACOG Resident Activity Tracking <Minnie Nuñez DO - Last Filed: 07/25/23 06:27> Resident Involvement: Resident Care Provided Care Provided: OB Delivery
[2023-07-25] MEDS ORDERED: PRENATAL VITAMIN 1 TAB PO SCH (08:00)
[2023-07-25] MEDS: DOCUSATE SODIUM 100 MG CAP PO SCH (08:48)
[2023-07-25] MEDS: IBUPROFEN 600 MG TAB PO PRN (08:48)
[2023-07-25] MEDS: SERTRALINE HCL 100 MG TABLET PO SCH (09:00)
[2023-07-25] MEDS: CETIRIZINE HCL 10 MG TABLET PO SCH (09:00)
[2023-07-25] MEDS ORDERED: MAGNESIUM OXIDE 400 MG TAB PO SCH (09:00)
== END 2023-07-25 12:27 | disposition home or self-care (01) | DRG 807 ==
LOC: OPB 01:59 → 4S1 02:03 → 4E2 13:15
DX: Z3A.37 37 weeks gestation of pregnancy; Z37.0 Single live birth; O24.429 Gestational diabetes mellitus in childbirth, unspecified control; O42.90 Premature rupture of membranes, unspecified as to length of time between rupture and onset of labor, unspecified weeks of gestation